=== PATIENT | male | born 1940 | race Caucasian/White ===

== ENCOUNTER → 2017-10-03 13:09 | Outpatient (CLI) | payer OTHER, SELFPAY ==
[2017-10-03 14:05] LABS: Basophils # 0.1 K/mm3 (0-0.2); Basophils % 0.2 % (0.1-2.0); Eosinophils # 0.1 K/mm3 (0.0-0.4); Eosinophils % 0.2 % (0.1-12.0); Hematocrit 41.9 % (42.0-52.0); Hemoglobin 13.6 g/dL (14.1-18.0); Lymphocytes # 31.5 K/mm3 (0.7-4.5); Lymphocytes % 87.7 K/mm3 (10-50); Mean Corpuscular HGB Conc 32.4 g/dL (31.8-35.4); Mean Corpuscular Hemoglobin 30.7 pg (27.0-31.2); Mean Corpuscular Volume 94.9 fl (80-94); Mean Platelet Volume 7.9 fl (7.4-10.4); Monocytes # 0.5 K/mm3 (0.1-1.0); Monocytes % 1.2 % (1.7-9.3); Neutrophils # 3.8 K/mm3 (1.8-7.8); Platelet Count 147 K/mm3 (142-424); Red Blood Count 4.41 M/mm3 (4.60-6.20); Red Cell Distribution Width 12.5 % (11.5-17.5); White Blood Count 35.9 K/mm3 (4.8-10.8)
[2017-10-03 14:52] LABS: Neutrophils % 10.6 % (37.0-80.0)
[2017-10-03 14:53] LABS: MANUAL DIFFERENTIAL MANUAL DIFFERENTIAL (MANUAL DIFF)
[2017-10-03 14:56] LABS: Lymphocytes % 86 % (10-50); Neutrophils % 10 % (42-76); Total Cells Counted 100
[2017-10-03 14:57] LABS: Platelet Estimate Normal; RBC Morphology Normal
[2017-10-03 16:10] LABS: Alanine Aminotransferase 36 U/L (12-78); Albumin Level 3.9 gm/dL (3.4-5.0); Albumin/Globulin Ratio 1.3 (1.1-1.8); Alkaline Phosphatase 115 U/L (46-116); Anion Gap 10.4 mEq/L (5-15); Aspartate Amino Transferase 22 U/L (15-37); Bilirubin,Total 0.3 mg/dL (0.2-1.0); Blood Urea Nitrogen 24 mg/dL (7-18); Calcium 9.7 mg/dL (8.5-10.1); Carbon Dioxide 31 mmol/L (21.0-32.0); Chloride 107 mmol/L (98-107); Creatinine,Serum 0.85 mg/dL (0.70-1.30); Estimated Glomerular Filt Rate 88 ml/min (>60); GFR (African American) 106 ML/MIN (>60); Globulin 2.9 gm/dl (1.3-3.2); Glucose 101 mg/dL (74-106); Potassium 4.4 mmoL/L (3.5-5.1); Sodium 144 mmol/L (136-145); Total Protein,Serum 6.8 gm/dL (6.4-8.2)
[2017-10-05 16:06] LABS: Peripheral Smear Review Scanned Result
== END ==
PROVIDERS: PCP Internal Medicine Adolescent Medicine; Visit Provider Internal Medicine
DX: C91.10 Chronic lymphocytic leukemia of B-cell type not having achieved remission (principal)
CPT/HCPCS: 36415; 80053; 85007; 85025

== ENCOUNTER → 2017-11-28 13:53 | Outpatient (CLI) | payer OTHER, SELFPAY | PROVIDERS: PCP Internal Medicine Adolescent Medicine; Visit Provider Surgery | DX: Z01.810 Encounter for preprocedural cardiovascular examination (principal) | CPT/HCPCS: 93005 ==

== ENCOUNTER → 2018-04-12 10:06 | Outpatient (CLI) | payer OTHER, SELFPAY ==
[2018-04-12 10:33] LABS: Basophils # 0.5 K/mm3 (0-0.2); Basophils % 1.1 % (0.1-2.0); Eosinophils # 0.1 K/mm3 (0.0-0.4); Eosinophils % 0.1 % (0.1-12.0); Hematocrit 46.7 % (42.0-52.0); Hemoglobin 15.2 g/dL (14.1-18.0); Lymphocytes # 36.1 K/mm3 (0.7-4.5); Mean Corpuscular HGB Conc 32.5 g/dL (31.8-35.4); Mean Corpuscular Hemoglobin 31.2 pg (27.0-31.2); Mean Corpuscular Volume 95.9 fl (80-94); Mean Platelet Volume 7.4 fl (7.4-10.4); Monocytes # 0.6 K/mm3 (0.1-1.0); Monocytes % 1.4 % (1.7-9.3); Neutrophils # 4.3 K/mm3 (1.8-7.8); Platelet Count 149 K/mm3 (142-424); Red Blood Count 4.87 M/mm3 (4.60-6.20); Red Cell Distribution Width 13.2 % (11.5-17.5)
[2018-04-12 13:28] LABS: Neutrophils % 10.4 % (37.0-80.0)
[2018-04-12 15:26] LABS: White Blood Count 41.5 K/mm3 (4.8-10.8)
[2018-04-12 15:27] LABS: Lymphocytes % 86 % (10-50); Monocytes % 3 % (2-9); Neutrophils % 11 % (42-76); Platelet Estimate Normal; Total Cells Counted 100
[2018-04-12 15:28] LABS: MANUAL DIFFERENTIAL MANUAL DIFFERENTIAL (MANUAL DIFF)
[2018-04-14 16:18] LABS: Peripheral Smear Review Scanned Result
== END ==
PROVIDERS: PCP Internal Medicine; Visit Provider Internal Medicine
DX: C91.11 Chronic lymphocytic leukemia of B-cell type in remission (principal)
CPT/HCPCS: 36415; 85007; 85025

== ENCOUNTER → 2018-08-30 12:16 | Outpatient (CLI) | payer OTHER, SELFPAY ==
[2018-08-30 12:56] LABS: Basophils # 0.3 K/mm3 (0-0.2); Basophils % 0.8 % (0.1-2.0); Eosinophils % 0.1 % (0.1-12.0); Hematocrit 46.8 % (42.0-52.0); Hemoglobin 14.7 g/dL (14.1-18.0); Lymphocytes # 36.1 K/mm3 (0.7-4.5); Lymphocytes % 87.6 % (10-50); Mean Corpuscular HGB Conc 31.5 g/dL (31.8-35.4); Mean Corpuscular Hemoglobin 31.3 pg (27.0-31.2); Mean Corpuscular Volume 99.2 fl (80-94); Mean Platelet Volume 7.6 fl (7.4-10.4); Monocytes # 0.4 K/mm3 (0.1-1.0); Monocytes % 0.8 % (1.7-9.3); Neutrophils # 4.4 K/mm3 (1.8-7.8); Platelet Count 147 K/mm3 (142-424); Red Blood Count 4.72 M/mm3 (4.60-6.20); Red Cell Distribution Width 12.9 % (11.5-17.5)
[2018-08-30 14:32] LABS: White Blood Count 41.2 K/mm3 (4.8-10.8)
[2018-08-30 14:34] LABS: MANUAL DIFFERENTIAL MANUAL DIFFERENTIAL (MANUAL DIFF)
[2018-08-30 15:28] LABS: Alanine Aminotransferase 30 U/L (12-78); Albumin Level 3.9 gm/dL (3.4-5.0); Albumin/Globulin Ratio 1.3 (1.1-1.8); Alkaline Phosphatase 134 U/L (46-116); Anion Gap 15.7 mEq/L (5-15); Aspartate Amino Transferase 20 U/L (15-37); Bilirubin,Total 0.3 mg/dL (0.2-1.0); Blood Urea Nitrogen 25 mg/dL (7-18); Calcium 9.4 mg/dL (8.5-10.1); Carbon Dioxide 26 mmol/L (21.0-32.0); Chloride 106 mmol/L (98-107); Chol/HDL Ratio 4.9 (1-3.5); Cholesterol 207 mg/dL (140-200); Creatinine,Serum 1.07 mg/dL (0.70-1.30); Estimated Glomerular Filt Rate 67 ml/min (>60); GFR (African American) 82 ML/MIN (>60); Globulin 3.1 gm/dl (1.3-3.2); Glucose 97 mg/dL (74-106); HDL Cholesterol 42 mg/dL (27-67); LDL Cholesterol 141 mg/dL (0-130); Phenytoin (Dilantin) 7.5 ug/mL (10-20); Potassium 4.7 mmoL/L (3.5-5.1); Sodium 143 mmol/L (136-145); Triglycerides 122 mg/dL (30-200); VLDL Cholesterol 24 mg/dL (0-40)
[2018-08-30 16:40] LABS: Lymphocytes % 79 % (10-50); Neutrophils % 17 % (42-76); Platelet Estimate Normal; RBC Morphology Normal; Total Cells Counted 100
[2018-08-30 16:41] LABS: Differential Comment SMUDGE CEL
[2018-08-30 16:42] LABS: Neutrophils % 10.7 % (37.0-80.0)
[2018-09-01 12:18] LABS: Peripheral Smear Review Scanned Result
== END ==
PROVIDERS: PCP Internal Medicine Adolescent Medicine; Visit Provider Internal Medicine Adolescent Medicine
DX: E78.00 Pure hypercholesterolemia, unspecified (principal); R25.1 Tremor, unspecified
CPT/HCPCS: 36415; 80053; 80061; 80185; 85007; 85025

== ENCOUNTER → 2018-10-17 11:12 | Outpatient (CLI) | payer OTHER, SELFPAY ==
[2018-10-17 11:35] LABS: Basophils # 0.3 K/mm3 (0-0.2); Basophils % 0.7 % (0.1-2.0); Eosinophils % 0.1 % (0.1-12.0); Hematocrit 46.8 % (42.0-52.0); Hemoglobin 15.2 g/dL (14.1-18.0); Lymphocytes # 35.5 K/mm3 (0.7-4.5); Lymphocytes % 88.3 % (10-50); Mean Corpuscular HGB Conc 32.6 g/dL (31.8-35.4); Mean Corpuscular Hemoglobin 31.9 pg (27.0-31.2); Mean Corpuscular Volume 97.9 fl (80-94); Mean Platelet Volume 7.6 fl (7.4-10.4); Monocytes # 0.3 K/mm3 (0.1-1.0); Monocytes % 0.8 % (1.7-9.3); Neutrophils # 4.1 K/mm3 (1.8-7.8); Platelet Count 129 K/mm3 (142-424); Red Blood Count 4.78 M/mm3 (4.60-6.20)
[2018-10-17 11:43] LABS: Alanine Aminotransferase 26 U/L (12-78); Albumin Level 3.7 gm/dL (3.4-5.0); Albumin/Globulin Ratio 1.1 (1.1-1.8); Alkaline Phosphatase 140 U/L (46-116); Anion Gap 13.1 mEq/L (5-15); Aspartate Amino Transferase 15 U/L (15-37); Bilirubin,Total 0.3 mg/dL (0.2-1.0); Blood Urea Nitrogen 27 mg/dL (7-18); Carbon Dioxide 28 mmol/L (21.0-32.0); Chloride 106 mmol/L (98-107); Creatinine,Serum 1.12 mg/dL (0.70-1.30); Estimated Glomerular Filt Rate 64 ml/min (>60); GFR (African American) 77 ML/MIN (>60); Globulin 3.4 gm/dl (1.3-3.2); Glucose 111 mg/dL (74-106); Potassium 5.1 mmoL/L (3.5-5.1); Sodium 142 mmol/L (136-145); Total Protein,Serum 7.1 gm/dL (6.4-8.2)
[2018-10-17 12:02] LABS: Neutrophils % 10.2 % (37.0-80.0); White Blood Count 40.3 K/mm3 (4.8-10.8)
[2018-10-17 12:03] LABS: MANUAL DIFFERENTIAL MANUAL DIFFERENTIAL (MANUAL DIFF)
[2018-10-17 12:16] LABS: Lymphocytes % 84 % (10-50); Neutrophils % 13 % (42-76); Platelet Estimate Slight Decrease; Total Cells Counted 100
[2018-10-17 12:17] LABS: RBC Morphology Normal
--- NOTE | 2018-10-17 13:31 | XR_ITS ---
XR tibia fibula RT 2V CLINICAL INDICATION: ITS.REASON: RT LOWER LEG PAIN,H/O PROSTATE CA,LYMPHOCYTIC LEUKEMIA ORDERING PHYSICIAN: Nicolas Osborn MD PATIENT AGE: 78 years Comparison: None FINDINGS: No bony or joint abnormalities. No lytic or blastic change. IMPRESSION: Negative right tib-fib
[2018-10-17 14:05] LABS: Thyroid Stimulating Hormone < 0.01 uIU/ml (0.358-3.740)
[2018-10-17 15:02] LABS: Free T4 (Free Thyroxine) 1.61 ng/dl (0.76-1.46)
[2018-10-18 12:37] LABS: Vitamin B12 634 pg/mL (232-1245)
== END ==
PROVIDERS: Nurse Practitioner Family; PCP Internal Medicine Adolescent Medicine; Visit Provider Internal Medicine
DX: C91.90 Lymphoid leukemia, unspecified not having achieved remission (principal); M79.661 Pain in right lower leg; E05.90 Thyrotoxicosis, unspecified without thyrotoxic crisis or storm; R41.0 Disorientation, unspecified; Z85.46 Personal history of malignant neoplasm of prostate
CPT/HCPCS: 36415; 73590; 80053; 82607; 84439; 84443; 85007; 85025

== ENCOUNTER → 2018-11-08 10:08 | Outpatient (CLI) | payer OTHER, SELFPAY ==
--- NOTE | 2018-11-08 10:15 | CA_ITS ---
PROCEDURE: 2-D M-mode and color Doppler study INDICATIONS FOR THE TEST: Chest pain+ COPD Heart Murmur Tobacco Smoking Palpitations+ Fatigue Syncope Edema Hypertension Diabetes Mellitus Rheumatic Fever SOB+DSOUZA+Obesity Hyperlipidemia Family History HD Additional History CLL PATIENT INFORMATION HEIGHT: 64 WEIGHT: 148 GENDER: Male B/P: 148/56 2-D/M-MODE INTERPRETATION: 2-D MEASUREMENTS OBSERVED VALUES IN CMS Right Ventricular Dimension (RVDd) 1.5 Interventricular Septum (Thickness)(IVsd) 0.8 Left Ventricular Internal Dimensions(LVIDd) 2.8 Left Ventricular Posterior Wall (Thickness)(LVPWd) 0.9 Aortic Root 2.6 Aortic Cusp Separation 2.0 Left Atrial Dimensions (LAD) 4.0 2D 1. Left atrium is mildly enlarged, left ventricle is normal size, there is no concentric left ventricular hypertrophy, visually estimated ejection fraction of 55% with no regional wall motion abnormality. 2. The right atrium and right ventricle are normal size and contractility. 3. The aortic valve is thickened and calcified leaflet continue to display good mobility. 4. The mitral and tricuspid valve are grossly normal. 5. The pulmonic valve is poorly visualized. 6. No significant pericardial effusion noted. DOPPLER INTERROGATION: Doppler interrogation of the aortic, mitral and tricuspid valvular presence of mild mitral and tricuspid regurgitation, tricuspid regurgitation jet velocity is inadequate for calculation of the right ventricular systolic pressure, grade 1 diastolic dysfunction seen with tissue Doppler evidence of raised left atrial pressure. CONCLUSION: 1. Mildly enlarged left atrium, normal left ventricular size, there is no concentric left ventricular hypertrophy, visually estimated ejection fraction 55% with no regional wall motion abnormality, grade 1 diastolic dysfunction seen with tissue Doppler evidence of raised left atrial pressure. 2. Thickened and calcified aortic valve without aortic stenosis aortic insufficiency. 3. Mild mitral and tricuspid regurgitation 4. No significant pericardial effusion noted.
== END ==
PROVIDERS: PCP Internal Medicine Adolescent Medicine; Visit Provider Nurse Practitioner Family
DX: R06.09 Other forms of dyspnea (principal)
CPT/HCPCS: 93306

== ENCOUNTER → 2019-04-03 12:20 | Outpatient (CLI) | payer OTHER, SELFPAY ==
[2019-04-03 12:56] LABS: Basophils # 0.4 K/mm3 (0-0.2); Basophils % 0.9 % (0.1-2.0); Eosinophils % 0.1 % (0.1-12.0); Hematocrit 45.7 % (42.0-52.0); Hemoglobin 14.6 g/dL (14.1-18.0); Mean Corpuscular HGB Conc 32.1 g/dL (31.8-35.4); Mean Corpuscular Hemoglobin 31.5 pg (27.0-31.2); Mean Corpuscular Volume 98.4 fl (80-94); Mean Platelet Volume 7.1 fl (7.4-10.4); Monocytes # 0.4 K/mm3 (0.1-1.0); Monocytes % 0.9 % (1.7-9.3); Neutrophils # 3.7 K/mm3 (1.8-7.8); Platelet Count 136 K/mm3 (142-424); Red Blood Count 4.64 M/mm3 (4.60-6.20); Red Cell Distribution Width 13.1 % (11.5-17.5)
[2019-04-03 13:11] LABS: Alanine Aminotransferase 22 U/L (12-78); Albumin Level 3.6 gm/dL (3.4-5.0); Albumin/Globulin Ratio 1.2 (1.1-1.8); Alkaline Phosphatase 129 U/L (46-116); Anion Gap 11.3 mEq/L (5-15); Aspartate Amino Transferase 14 U/L (15-37); Bilirubin,Total 0.2 mg/dL (0.2-1.0); Blood Urea Nitrogen 28 mg/dL (7-18); Calcium 9.1 mg/dL (8.5-10.1); Carbon Dioxide 31 mmol/L (21.0-32.0); Chloride 106 mmol/L (98-107); Creatinine,Serum 1.08 mg/dL (0.70-1.30); Estimated Glomerular Filt Rate 66 ml/min (>60); GFR (African American) 80 ML/MIN (>60); Glucose 105 mg/dL (74-106); Potassium 4.3 mmoL/L (3.5-5.1); Sodium 144 mmol/L (136-145); Total Protein,Serum 6.6 gm/dL (6.4-8.2)
[2019-04-03 13:14] LABS: Neutrophils % 9.1 % (37.0-80.0)
[2019-04-03 13:18] LABS: White Blood Count 40.7 K/mm3 (4.8-10.8)
[2019-04-03 13:33] LABS: MANUAL DIFFERENTIAL MANUAL DIFFERENTIAL (MANUAL DIFF)
[2019-04-03 14:00] LABS: Lymphocytes % 57 % (10-50); Neutrophils % 11 % (42-76); Platelet Estimate Normal; RBC Morphology Normal; Total Cells Counted 100
== END ==
PROVIDERS: Visit Provider Internal Medicine Medical Oncology
DX: C91.10 Chronic lymphocytic leukemia of B-cell type not having achieved remission (principal)
CPT/HCPCS: 36415; 80053; 85007; 85025

== ENCOUNTER → 2019-04-15 11:06 | Outpatient (CLI) | payer OTHER, SELFPAY ==
[2019-04-15 11:27] LABS: Basophils # 0.4 K/mm3 (0-0.2); Eosinophils # 0.1 K/mm3 (0.0-0.4); Eosinophils % 0.1 % (0.1-12.0); Hematocrit 45.9 % (42.0-52.0); Hemoglobin 14.8 g/dL (14.1-18.0); Lymphocytes # 36.2 K/mm3 (0.7-4.5); Mean Corpuscular HGB Conc 32.3 g/dL (31.8-35.4); Mean Corpuscular Hemoglobin 31.5 pg (27.0-31.2); Mean Corpuscular Volume 97.5 fl (80-94); Mean Platelet Volume 7.2 fl (7.4-10.4); Monocytes # 0.3 K/mm3 (0.1-1.0); Monocytes % 0.8 % (1.7-9.3); Neutrophils # 3.7 K/mm3 (1.8-7.8); Platelet Count 144 K/mm3 (142-424); Red Blood Count 4.71 M/mm3 (4.60-6.20); Red Cell Distribution Width 12.9 % (11.5-17.5)
[2019-04-15 11:39] LABS: MANUAL DIFFERENTIAL MANUAL DIFFERENTIAL (MANUAL DIFF)
[2019-04-15 13:24] LABS: Alanine Aminotransferase 22 U/L (12-78); Albumin Level 3.7 gm/dL (3.4-5.0); Albumin/Globulin Ratio 1.2 (1.1-1.8); Alkaline Phosphatase 129 U/L (46-116); Anion Gap 11.1 mEq/L (5-15); Aspartate Amino Transferase 15 U/L (15-37); Bilirubin,Total 0.2 mg/dL (0.2-1.0); Blood Urea Nitrogen 24 mg/dL (7-18); Calcium 9.8 mg/dL (8.5-10.1); Carbon Dioxide 30 mmol/L (21.0-32.0); Chloride 105 mmol/L (98-107); Cholesterol 216 mg/dL (140-200); Creatinine,Serum 1.04 mg/dL (0.70-1.30); Estimated Glomerular Filt Rate 69 ml/min (>60); Free Thyroxine Index 2.4 ug/dL (5.93-13.13); GFR (African American) 84 ML/MIN (>60); Glucose 93 mg/dL (74-106); HDL Cholesterol 43 mg/dL (27-67); LDL Cholesterol 154 mg/dL (0-130); Potassium 4.1 mmoL/L (3.5-5.1); Sodium 142 mmol/L (136-145); T4 (Thyroxine) 6.8 ug/dl (4.7-13.3); Total Protein,Serum 6.7 gm/dL (6.4-8.2); Triglycerides 93 mg/dL (30-200); Triiodothryronine (T3) Uptake 35 % (31-39); VLDL Cholesterol 19 mg/dL (0-40)
[2019-04-15 13:54] LABS: Lymphocytes % 93 % (10-50); Monocytes % 1 % (2-9); Neutrophils % 6 % (42-76); Platelet Estimate Normal; Total Cells Counted 100
[2019-04-15 13:56] LABS: RBC Morphology Normal
[2019-04-15 14:33] LABS: Thyroid Stimulating Hormone < 0.01 uIU/ml (0.358-3.740)
[2019-04-17 09:39] LABS: White Blood Count 40.6 K/mm3 (4.8-10.8)
== END ==
PROVIDERS: Visit Provider Internal Medicine Adolescent Medicine
DX: E78.00 Pure hypercholesterolemia, unspecified (principal); E05.90 Thyrotoxicosis, unspecified without thyrotoxic crisis or storm
CPT/HCPCS: 36415; 80053; 80061; 84436; 84443; 84479; 85007; 85025

== ENCOUNTER → 2019-10-02 12:43 | Outpatient (CLI) | payer OTHER, SELFPAY ==
[2019-10-02 12:56] LABS: Basophils # 0.2 K/mm3 (0-0.2); Basophils % 0.7 % (0.1-2.0); Eosinophils % 0.1 % (0.1-12.0); Hematocrit 41.7 % (42.0-52.0); Hemoglobin 14.3 g/dL (14.1-18.0); Lymphocytes # 30.5 K/mm3 (0.7-4.5); Lymphocytes % 84.1 % (10-50); Mean Corpuscular HGB Conc 34.3 g/dL (31.8-35.4); Mean Corpuscular Volume 96.1 fl (80-94); Mean Platelet Volume 8.5 fl (7.4-10.4); Monocytes # 0.4 K/mm3 (0.1-1.0); Monocytes % 1.2 % (1.7-9.3); Neutrophils # 5.1 K/mm3 (1.8-7.8); Platelet Count 165 K/mm3 (142-424); Red Blood Count 4.34 M/mm3 (4.60-6.20); Red Cell Distribution Width 12.2 % (11.5-17.5); White Blood Count 36.3 K/mm3 (4.8-10.8)
[2019-10-02 12:57] LABS: Neutrophils % 14.1 % (37.0-80.0)
[2019-10-02 12:58] LABS: MANUAL DIFFERENTIAL MANUAL DIFFERENTIAL (MANUAL DIFF)
[2019-10-02 13:05] LABS: Lymphocytes % 85 % (10-50); Monocytes % 1 % (2-9); Neutrophils % 14 % (42-76); Platelet Estimate Normal; RBC Morphology Normal; Total Cells Counted 100
== END ==
PROVIDERS: Visit Provider Internal Medicine Hematology & Oncology
DX: C91.10 Chronic lymphocytic leukemia of B-cell type not having achieved remission (principal)
CPT/HCPCS: 36415; 85007; 85025

== ENCOUNTER → 2019-11-05 10:54 | Outpatient (CLI) | payer OTHER, SELFPAY ==
[2019-11-05 11:30] LABS: Basophils # 0.2 K/mm3 (0-0.2); Basophils % 0.6 % (0.1-2.0); Eosinophils % 0.1 % (0.1-12.0); Hematocrit 44.1 % (42.0-52.0); Hemoglobin 14.7 g/dL (14.1-18.0); Lymphocytes # 27.4 K/mm3 (0.7-4.5); Lymphocytes % 86.1 % (10-50); Mean Corpuscular HGB Conc 33.4 g/dL (31.8-35.4); Mean Corpuscular Hemoglobin 32.6 pg (27.0-31.2); Mean Corpuscular Volume 97.5 fl (80-94); Mean Platelet Volume 8.4 fl (7.4-10.4); Monocytes # 0.3 K/mm3 (0.1-1.0); Monocytes % 0.8 % (1.7-9.3); Platelet Count 117 K/mm3 (142-424); Red Blood Count 4.53 M/mm3 (4.60-6.20); White Blood Count 31.9 K/mm3 (4.8-10.8)
[2019-11-05 12:29] LABS: Neutrophils % 12.4 % (37.0-80.0)
[2019-11-05 12:30] LABS: MANUAL DIFFERENTIAL MANUAL DIFFERENTIAL (MANUAL DIFF)
[2019-11-05 12:35] LABS: Lymphocytes % 86 % (10-50); Neutrophils % 12 % (42-76); Total Cells Counted 100
[2019-11-05 12:36] LABS: Platelet Estimate Slight Decrease
[2019-11-05 12:41] LABS: RBC Morphology Normal
[2019-11-05 13:26] LABS: Alanine Aminotransferase 13 U/L (12-78); Albumin Level 4.3 g/dl (3.5-5.0); Albumin/Globulin Ratio 1.7 (1.1-1.8); Alkaline Phosphatase 117 U/L (38-126); Anion Gap 8.7 mEq/L (5-15); Aspartate Amino Transferase 23 U/L (17-59); Bilirubin,Total 0.3 mg/dl (0.2-1.3); Blood Urea Nitrogen 25 mg/dl (9-20); Calcium 10.3 mg/dl (8.4-10.2); Carbon Dioxide 31 mmol/L (22.0-30.0); Chloride 105 mmol/L (98-107); Estimated Glomerular Filt Rate 65 ml/min (>60); GFR (African American) 79 ML/MIN (>60); Globulin 2.5 g/dL (1.3-3.2); Glucose 104 mg/dl (74-100); Potassium 4.7 mmoL/L (3.5-5.1); Sodium 140 mmol/L (136-145); Total Protein,Serum 6.8 g/dl (6.3-8.2)
[2019-11-05 13:45] LABS: Free Thyroxine Index 2.7 ug/dL (5.93-13.13); T4 (Thyroxine) 8.3 ug/dl (5.53-11.0); Triiodothryronine (T3) Uptake 33 % (23.5-40.5)
[2019-11-05 13:57] LABS: Prostate Specific Ag, Diagnost < 0.064 ng/ml (0.0-4.0)
[2019-11-05 13:59] LABS: Thyroid Stimulating Hormone < 0.02 uIU/mL (0.465-4.68)
[2019-11-07 11:24] LABS: Vitamin B12 529 pg/mL (232-1245); Vitamin D 25 Hydroxy 57.3 ng/mL (30.0-100.0)
== END ==
PROVIDERS: Visit Provider Internal Medicine Adolescent Medicine
DX: C91.90 Lymphoid leukemia, unspecified not having achieved remission (principal); E05.90 Thyrotoxicosis, unspecified without thyrotoxic crisis or storm; R63.4 Abnormal weight loss; Z85.46 Personal history of malignant neoplasm of prostate
CPT/HCPCS: 36415; 80053; 82607; 82652; 84153; 84436; 84443; 84479; 85007; 85025

== ENCOUNTER → 2020-09-06 16:54 | Outpatient (CLI) | payer OTHER, SELFPAY ==
[2020-09-06 18:29] LABS: Basophils # 0.2 K/mm3 (0-0.2); Basophils % 0.7 % (0.1-2.0); Eosinophils % 0.1 % (0.1-12.0); Hemoglobin 15.4 g/dL (14.1-18.0); Lymphocytes # 28.4 K/mm3 (0.7-4.5); Lymphocytes % 88.8 % (10-50); Mean Corpuscular HGB Conc 32.8 g/dL (31.8-35.4); Mean Corpuscular Hemoglobin 31.6 pg (27.0-31.2); Mean Corpuscular Volume 96.1 fl (80-94); Mean Platelet Volume 8.1 fl (7.4-10.4); Monocytes # 0.3 K/mm3 (0.1-1.0); Monocytes % 1.1 % (1.7-9.3); Platelet Count 153 K/mm3 (142-424); Red Blood Count 4.89 M/mm3 (4.60-6.20); Red Cell Distribution Width 13.6 % (11.5-17.5)
[2020-09-06 18:43] LABS: MANUAL DIFFERENTIAL MANUAL DIFFERENTIAL (MANUAL DIFF); Neutrophils % 9.2 % (37.0-80.0)
[2020-09-06 19:00] LABS: Alanine Aminotransferase 18 U/L (12-78); Albumin Level 4.7 g/dl (3.5-5.0); Albumin/Globulin Ratio 1.6 (1.1-1.8); Alkaline Phosphatase 146 U/L (38-126); Anion Gap 15.5 mEq/L (5-15); Aspartate Amino Transferase 33 U/L (17-59); Bilirubin,Total 0.4 mg/dl (0.2-1.3); Blood Urea Nitrogen 28 mg/dl (9-20); Calcium 10.1 mg/dl (8.4-10.2); Carbon Dioxide 29 mmol/L (22.0-30.0); Chloride 102 mmol/L (98-107); Estimated Glomerular Filt Rate 72 ml/min (>60); GFR (African American) 88 ML/MIN (>60); Glucose 107 mg/dl (74-100); Magnesium 1.9 mg/dl (1.6-2.3); Phenytoin (Dilantin) 6.2 ug/ml (10-20); Potassium 4.5 mmoL/L (3.5-5.1); Sodium 142 mmol/L (136-145); Total Protein,Serum 7.7 g/dl (6.3-8.2)
[2020-09-06 19:13] LABS: Free Thyroxine Index 4.1 ug/dL (5.93-13.13); T4 (Thyroxine) 10.7 ug/dl (5.53-11.0); Triiodothryronine (T3) Uptake 38 % (23.5-40.5)
[2020-09-06 19:27] LABS: Thyroid Stimulating Hormone < 0.02 uIU/mL (0.465-4.68)
[2020-09-06 19:46] LABS: Vitamin B12 692 pg/mL (239-931)
[2020-09-06 20:31] LABS: Lymphocytes % 85 % (10-50); Monocytes % 2 % (2-9); Neutrophils % 13 % (42-76); Platelet Estimate Normal; RBC Morphology Normal; Total Cells Counted 100
== END ==
PROVIDERS: Visit Provider Internal Medicine Adolescent Medicine
DX: R42 Dizziness and giddiness (principal); R25.1 Tremor, unspecified
CPT/HCPCS: 36415; 80053; 80185; 82607; 83735; 84436; 84443; 84479; 85007; 85025

== ENCOUNTER → 2020-10-21 13:30 | Outpatient (CLI) | payer OTHER, SELFPAY ==
[2020-10-21 13:50] LABS: Basophils # 0.2 K/mm3 (0-0.2); Basophils % 0.6 % (0.1-2.0); Eosinophils # 0.1 K/mm3 (0.0-0.4); Eosinophils % 0.2 % (0.1-12.0); Hemoglobin 14.9 g/dL (14.1-18.0); Lymphocytes # 23.4 K/mm3 (0.7-4.5); Monocytes # 0.3 K/mm3 (0.1-1.0); Monocytes % 1.1 % (1.7-9.3); White Blood Count 27.1 K/mm3 (4.8-10.8)
[2020-10-21 14:21] LABS: Hematocrit 45.9 % (42.0-52.0); Lymphocytes % 86.2 % (10-50); Mean Corpuscular HGB Conc 32.4 g/dL (31.8-35.4); Mean Corpuscular Hemoglobin 30.7 pg (27.0-31.2); Mean Platelet Volume 8.3 fl (7.4-10.4); Neutrophils # 3.3 K/mm3 (1.8-7.8); Platelet Count 124 K/mm3 (142-424); Red Blood Count 4.83 M/mm3 (4.60-6.20); Red Cell Distribution Width 13.1 % (11.5-17.5)
[2020-10-21 14:26] LABS: MANUAL DIFFERENTIAL MANUAL DIFFERENTIAL (MANUAL DIFF)
[2020-10-21 15:01] LABS: Alanine Aminotransferase 21 U/L (12-78); Albumin Level 4.7 g/dl (3.5-5.0); Albumin/Globulin Ratio 1.7 (1.1-1.8); Alkaline Phosphatase 130 U/L (38-126); Anion Gap 12.6 mEq/L (5-15); Aspartate Amino Transferase 26 U/L (17-59); Bilirubin,Total 0.5 mg/dl (0.2-1.3); Blood Urea Nitrogen 25 mg/dl (9-20); Calcium 10.8 mg/dl (8.4-10.2); Carbon Dioxide 30 mmol/L (22.0-30.0); Chloride 102 mmol/L (98-107); Estimated Glomerular Filt Rate 72 ml/min (>60); GFR (African American) 87 ML/MIN (>60); Globulin 2.8 g/dL (1.3-3.2); Glucose 106 mg/dl (74-100); Potassium 4.6 mmoL/L (3.5-5.1); Sodium 140 mmol/L (136-145); Total Protein,Serum 7.5 g/dl (6.3-8.2)
[2020-10-21 15:07] LABS: Lymphocytes % 84 % (10-50); Monocytes % 4 % (2-9); Neutrophils % 12 % (42-76); Platelet Estimate Slight Decrease; RBC Morphology Normal; Total Cells Counted 100
== END ==
PROVIDERS: Visit Provider Internal Medicine Medical Oncology
DX: C91.11 Chronic lymphocytic leukemia of B-cell type in remission (principal)
CPT/HCPCS: 36415; 80053; 85007; 85025

== ENCOUNTER 2021-05-30 20:47 | Inpatient (IN) | payer OTHER, SELFPAY ==
[2021-05-30 20:41] VITALS: BP 131/58; PULSE 118; RESP 16; TEMP 37.3; O2SAT 99; BMI 26.5
--- NOTE | 2021-05-30 20:54 | HMH.EDFALL ---
ED Disposition Clinical Impression: CLL (chronic lymphocytic leukemia), Elevated troponin Fall Qualifiers: Encounter type: initial encounter Qualified Code(s): W19.XXXA - Unspecified fall, initial encounter UTI (urinary tract infection) Qualifiers: Urinary tract infection type: site unspecified Hematuria presence: without hematuria Qualified Code(s): N39.0 - Urinary tract infection, site not specified Ribs, multiple fractures Qualifiers: Encounter type: initial encounter Fracture type: closed Laterality: right Qualified Code(s): S22.41XA - Multiple fractures of ribs, right side, initial encounter for closed fracture Disposition: Admitted As Inpatient Condition on Discharge: [facility] - Critical Care Critical Care Time: No Attestation: On , the high probability of a clinically significant, sudden or life threatening deterioration of the following system(s) required my full and direct attention, intervention and personal management. The time I documented below is in addition to time spent performing reported procedures but includes the following listed in this critical care notation. Medical Decision Making - Medical Records Medical records reviewed: Yes: I reviewed the patient's medical records. - Farzad Inquiry Pt receiving controlled substance: No Vital Signs: 05/30/21 20:41 05/30/21 21:01 05/30/21 21:28 Temperature 99.1 F Temperature Source Oral Pulse Rate 112 H 109 H Pulse Rate [Right] 118 H Respiratory Rate 16 Blood Pressure 109/70 L 110/74 Blood Pressure [Right Arm] 131/58 L Blood Pressure Mean [Right Arm] 82 Blood Pressure Source Blood Pressure Source [Right Arm] Automatic Cuff Blood Pressure Position Blood Pressure Position [Right Arm] Sitting 02 Sat by Pulse Oximetry 99 96 93 L Oxygen Delivery Method Room Air Room Air Room Air 05/30/21 23:04 05/30/21 23:30 05/31/21 00:00 Temperature Temperature Source Pulse Rate 114 H 92 H 94 H Pulse Rate [Right] Respiratory Rate Blood Pressure 112/52 L 94/52 L 105/50 L Blood Pressure [Right Arm] Blood Pressure Mean [Right Arm] Blood Pressure Source Blood Pressure Source [Right Arm] Blood Pressure Position Blood Pressure Position [Right Arm] 02 Sat by Pulse Oximetry 97 97 96 Oxygen Delivery Method Room Air Room Air 05/31/21 01:34 Temperature Temperature Source Pulse Rate 95 H Pulse Rate [Right] Respiratory Rate 16 Blood Pressure 108/57 L Blood Pressure [Right Arm] Blood Pressure Mean [Right Arm] Blood Pressure Source Automatic Cuff Blood Pressure Source [Right Arm] Blood Pressure Position Sitting Blood Pressure Position [Right Arm] 02 Sat by Pulse Oximetry 96 Oxygen Delivery Method Room Air - Lab Data Lab results reviewed: Yes: I reviewed the patient's lab results. Lab Results 05/30/21 20:20: WBC 27.0 H*, RBC 4.32 L, Hgb 13.7 L, Hct 42.3, MCV 97.9 H, MCH 31.8 H, MCHC 32.5, RDW 13.9, Plt Count 139 L, MPV 9.0, Neut % (Auto) 30.0 L, Lymph % (Auto) 67.7 H, Gordon % (Auto) 1.8, Eos % (Auto) 0.0 L, Baso % (Auto) 0.5, Neut # (Auto) 8.1 H, Lymph # (Auto) 18.3 H, Gordon # (Auto) 0.5, Eos # (Auto) 0.0, Baso # (Auto) 0.1, Total Counted 100, Neutrophils % (Manual) 32 L, Lymphocytes % (Manual) 68 H, Platelet Estimate Normal, RBC Morphology Normal 05/30/21 20:20: Sodium 140, Potassium 4.1, Chloride 101, Carbon Dioxide 29, Anion Gap 14.1, BUN 22 H, Creatinine 1.10, Estimated Creat Clear 53, Estimated GFR 65, Est GFR ( Amer) 78, Glucose 126 H, Calcium 10.5 H, Total Bilirubin 0.8, AST 32, ALT 22, Alkaline Phosphatase 126, Troponin I 0.08 H, Total Protein 7.8, Albumin 4.5, Globulin 3.3 H, Albumin/Globulin Ratio 1.4, Phenytoin < 3.0 L 05/30/21 22:55: Urine Color Yellow, Urine Appearance Sl cloudy, Urine pH 6.0, Ur Specific [place] 1.010, Urine Protein Trace, Urine Glucose (UA) Negative, Urine Ketones Negative, Urine Blood 2+, Urine Nitrate Negative, Urine Bilirubin Negative, Urine Urobilinogen 0.2, Ur Leuk
--- NOTE | 2021-05-30 20:57 | CT_ITS ---
PROCEDURE INFORMATION: Exam: CT Abdomen And Pelvis With Contrast Exam date and time: 05/30/2021 8:57 PM Age: 80 years old Clinical indication: Injury or trauma; Fall; Blunt; Upper; Additional info: Fall, C/O right sided rib pain TECHNIQUE: Imaging protocol: Computed tomography of the abdomen and pelvis with contrast. Radiation optimization: All CT scans at this facility use at least one of these dose optimization techniques: automated exposure control; mA and/or kV adjustment per patient size (includes targeted exams where dose is matched to clinical indication); or iterative reconstruction. Contrast material: ISOVUE; Contrast volume: 75 ml; Contrast route: IV; COMPARISON: CR XR PELVIS 1-2V 05/30/2021 9:08 PM FINDINGS: Lungs: No mass/infiltrate at either lung base. Chronic parenchymal changes are noted bilaterally. There is calcification of the left coronary artery. No pleural effusion. Liver: The liver is normal in size and attenuation. No intrahepatic biliary dilitation. Gallbladder and bile ducts: The gallbladder is surgically absent. No evidence of extrahepatic biliary dilatation. Pancreas: Normal. No ductal dilation. Spleen: Click splenectomy Adrenal glands: Normal. No mass. Kidneys and ureters: Right renal atrophy. There are benign cystic changes present within both kidneys. No evidence of hydronephrosis. No follow-up imaging recommended. Stomach and bowel: Colonic fecal stasis. No obstruction. No mucosal thickening. Small bowel mesentery is normal. Appendix: Unremarkable. Intraperitoneal space: Unremarkable. No free air. No significant fluid collection. Vasculature: There are atheromatous calcifications of the aorta. No abdominal aortic aneurysm. Lymph nodes: Unremarkable. No enlarged lymph nodes. Urinary bladder: Unremarkable as visualized. Reproductive: Prostatectomy and pelvic lymph node dissection noted. Bones/joints: There are acute fractures of the right 10th and 11th ribs. There is mild overlying soft tissue swelling. There is deformity of the left transverse process of L3 which may be secondary to old healed fracture. There is deformity associated with old fractures of left superior and inferior pubic rami. Degenerative changes of the lumbar spine and sacroiliac joints are evident. No acute fracture. Soft tissues: Unremarkable. IMPRESSION: There are acute nondisplaced fractures of the right 10th and 11th ribs. There is mild overlying soft tissue swelling. COMMENTS: Consistent with the [employer]'s Incidental Findings Committee white paper (J Am Aly Radiol 2018): Any incidental renal lesion less than 1 cm or classified as too small to characterize, or any incidental cystic renal lesion characterized as simple-appearing, is likely benign. No follow-up imaging is recommended for these lesions per consensus recommendations based on imaging criteria.
--- NOTE | 2021-05-30 20:57 | XR_ITS ---
PROCEDURE INFORMATION: Exam: XR Pelvis Exam date and time: 05/30/2021 8:57 PM Age: 80 years old Clinical indication: Injury or trauma; Fall; Blunt trauma (contusions or hematomas); Bilateral; Hip TECHNIQUE: Imaging protocol: XR pelvis. Views: 1 or 2 view. COMPARISON: No relevant prior studies available. FINDINGS: Bones/joints: There are degenerative changes noted within the lumbar spine. Levoconvex lumbar scoliosis. Mild degenerative changes of the sacroiliac joints is evident. No acute fracture. Soft tissues: There are multiple clips identified within the sacral region and within the deep pelvis. IMPRESSION: No acute findings.
--- NOTE | 2021-05-30 20:57 | XR_ITS ---
PROCEDURE INFORMATION: Exam: XR Chest Exam date and time: 05/30/2021 8:57 PM Age: 80 years old Clinical indication: Injury or trauma; Fall; Blunt trauma (contusions or hematomas) TECHNIQUE: Imaging protocol: XR of the chest. Views: 1 view. COMPARISON: No relevant prior studies available. FINDINGS: Limited inspiration and penetration of the chest. Lungs: Mild bibasilar atelectatic changes. There is a 4 mm nodule which is nearly equivalent to adjacent rib density noted within the peripheral aspect of the left mid lung field. Primary diagnostic consideration would be a calcified granuloma. There is a 2nd nodular density which is within the left lateral perihilar region which measures 12 mm in diameter. This could also represent another calcified granuloma or a calcified lymph node. This could be further evaluated with unenhanced computed tomography of clinically indicated. No evidence of alveolar consolidation. There is no evidence of pulmonary vascular congestion. Pleural spaces: Unremarkable. No pleural effusion. No pneumothorax. Heart/Mediastinum: Unremarkable. No cardiomegaly. Bones/joints: There are degenerative changes noted within the thoracic spine. IMPRESSION: No acute findings.
--- NOTE | 2021-05-30 20:57 | CT_ITS ---
PROCEDURE INFORMATION: Exam: CT Chest With Contrast; Diagnostic Exam date and time: 05/30/2021 8:57 PM Age: 80 years old Clinical indication: Injury or trauma; Fall; Blunt trauma (contusions or hematomas); Additional info: Fall, C/O right rib pain TECHNIQUE: Imaging protocol: Diagnostic computed tomography of the chest with contrast. 3D rendering (Not supervised by radiologist): MIP and/or 3D reconstructed images were created by the technologist. Radiation optimization: All CT scans at this facility use at least one of these dose optimization techniques: automated exposure control; mA and/or kV adjustment per patient size (includes targeted exams where dose is matched to clinical indication); or iterative reconstruction. Contrast material: ISOVUE; Contrast volume: 75 ml; Contrast route: IV; COMPARISON: CR XR CHEST AP 05/30/2021 9:08 PM FINDINGS: Lungs: Chronic interstitial changes are identified within both lung sharma. No consolidation. No masses. There is a calcified granuloma within the left upper lobe. Pleural spaces: Unremarkable. No pneumothorax. No pleural effusion. Heart: Unremarkable. No cardiomegaly. No pericardial effusion. Coronary arteries: There are calcifications identified within the coronary arteries. Mediastinal space: No evidence of mediastinal or hilar mass. Benign calcification tracheobronchial tree. Aorta: There are atheromatous calcifications of the aorta. No aortic aneurysm. Lymph nodes: Unremarkable. No enlarged lymph nodes. Bones/joints: There are nondisplaced fractures of the right 10th and 11th ribs. Soft tissues: Splenomegaly is again identified. Cholecystectomy has been performed. IMPRESSION: 1. Nondisplaced acute fractures of the right 10th and 11th ribs. 2. There is splenomegaly without evidence of splenic mass. 3. Cholecystectomy has been performed. 4. No evidence of right pleural effusion or pneumothorax. 5. Chronic interstitial changes present within both lung sharma.
[2021-05-30 21:01] VITALS: BP 109/70; PULSE 112; O2SAT 96
--- NOTE | 2021-05-30 21:03 | ECG_ITS ---
APPROVED REPORT Exam: Resting ECG HR:104 bpm ECG Measurements Heart Rate 104 AXES ID 154 P 31 QRSd 82 QRS -8 QT 316 T 39 QTc 415 Conclusion Sinus tachycardia Minimal voltage criteria for LVH, may be normal variant Borderline ECG Electronically signed by : Pratik Sofia MD 06/01/2021 21:25:36
[2021-05-30 21:05] LABS: Basophils # 0.1 K/mm3 (0-0.2); Basophils % 0.5 % (0.1-2.0); Hematocrit 42.3 % (42.0-52.0); Hemoglobin 13.7 g/dL (14.1-18.0); Lymphocytes # 18.3 K/mm3 (0.7-4.5); Lymphocytes % 67.7 % (10-50); Mean Corpuscular HGB Conc 32.5 g/dL (31.8-35.4); Mean Corpuscular Hemoglobin 31.8 pg (27.0-31.2); Mean Corpuscular Volume 97.9 fl (80-94); Monocytes # 0.5 K/mm3 (0.1-1.0); Monocytes % 1.8 % (1.7-9.3); Neutrophils # 8.1 K/mm3 (1.8-7.8); Platelet Count 139 K/mm3 (142-424); Red Blood Count 4.32 M/mm3 (4.60-6.20); Red Cell Distribution Width 13.9 % (11.5-17.5)
[2021-05-30 21:16] LABS: Alanine Aminotransferase 22 U/L (12-78); Albumin Level 4.5 g/dl (3.5-5.0); Albumin/Globulin Ratio 1.4 (1.1-1.8); Alkaline Phosphatase 126 U/L (38-126); Anion Gap 14.1 mEq/L (5-15); Aspartate Amino Transferase 32 U/L (17-59); Bilirubin,Total 0.8 mg/dl (0.2-1.3); Blood Urea Nitrogen 22 mg/dl (9-20); Calcium 10.5 mg/dl (8.4-10.2); Carbon Dioxide 29 mmol/L (22.0-30.0); Chloride 101 mmol/L (98-107); Creatinine Clearance Estimated 53 mL/min (50-200); Estimated Glomerular Filt Rate 65 ml/min (>60); GFR (African American) 78 ML/MIN (>60); Globulin 3.3 g/dL (1.3-3.2); Glucose 126 mg/dl (74-100); Potassium 4.1 mmoL/L (3.5-5.1); Sodium 140 mmol/L (136-145); Total Protein,Serum 7.8 g/dl (6.3-8.2)
[2021-05-30 21:17] LABS: Phenytoin (Dilantin) < 3.0 ug/ml (10-20)
[2021-05-30 21:19] LABS: MANUAL DIFFERENTIAL MANUAL DIFFERENTIAL (MANUAL DIFF)
[2021-05-30 21:25] LABS: Troponin I 0.08 ng/ml (0.00-0.034)
[2021-05-30 21:28] VITALS: BP 110/74; PULSE 109; O2SAT 93
[2021-05-30 21:33] LABS: Lymphocytes % 68 % (10-50); Neutrophils % 32 % (42-76); Platelet Estimate Normal; RBC Morphology Normal; Total Cells Counted 100
--- NOTE | 2021-05-30 21:56 | PC.NURSE ---
pt returned from CT
[2021-05-30 22:59] LABS: Microscopic, Urine URINE MICROSCOPIC (MICROSCOPIC)
[2021-05-30 23:04] VITALS: BP 112/52; PULSE 114; O2SAT 97
[2021-05-30 23:04] LABS: Appearance,Urine SL CLOUDY (Clear); Bilirubin,Urine Negative (Negative); Blood, Urine 2+ (Negative); Color,Urine YELLOW (Yellow); Glucose,Urine (UA) Negative (Negative); Ketones,Urine Negative (Negative); Leukocyte Esterase,Urine 1+ (Negative); Nitrate,Urine Negative (Negative); Protein,Urine TRACE (Negative); Urobilinogen,Urine 0.2 EU/dl (0.2)
--- NOTE | 2021-05-30 23:04 | PC.NURSE ---
Attempted to walk patient, x2 assist. Pt was shuffling his feet and unable to ambulate well. Notified
[2021-05-30 23:15] LABS: Coronavirus 19, PCR Not Detected (NotDetected); Influenza A, PCR Not Detected (NotDetected); Influenza B, PCR Not Detected (NotDetected)
[2021-05-30 23:16] LABS: WBC,Urine 20-50 #/hpf (0-3)
[2021-05-30 23:17] LABS: Bacteria,Urine 4+ /lpf; Squamous Epithelial Cell,Urine Occasional #/hpf (0-5)
[2021-05-30 23:30] VITALS: BP 94/52; PULSE 92; O2SAT 97
[2021-05-31] VITALS (15 sets, daily range): BP systolic 105–143; BP diastolic 45–73; PULSE 94–110; RESP 16–26; TEMP 36.8–38.2; O2SAT 93–98; BMI 22.8
[2021-05-31 00:14] LABS: Troponin I 0.21 ng/ml (0.00-0.034)
[2021-05-31 00:24] LABS: Lactic Acid 0.7 mmol/L (0.7-2.1)
--- NOTE | 2021-05-31 00:40 | PC.NURSE ---
Pt to CT at 0030
--- NOTE | 2021-05-31 01:53 | PC.NURSE ---
Dr. Kathia xie
--- NOTE | 2021-05-31 01:54 | PC.NURSE ---
speaking with Dr. Bea
--- NOTE | 2021-05-31 02:16 | PC.NURSE ---
patient up to floor via stretcher @ this time.
[2021-05-31 02:48] LABS: Troponin I 0.18 ng/ml (0.00-0.034)
[2021-05-31 03:17] LABS: T4 (Thyroxine) 9.4 ug/dl (5.53-11.0); Thyroid Stimulating Hormone < 0.02 uIU/mL (0.465-4.68)
[2021-05-31 06:26] LABS: Basophils # 0.1 K/mm3 (0-0.2); Basophils % 0.5 % (0.1-2.0); Hematocrit 33.8 % (42.0-52.0); Lymphocytes # 12.6 K/mm3 (0.7-4.5); Lymphocytes % 73.9 % (10-50); Mean Corpuscular HGB Conc 33.1 g/dL (31.8-35.4); Mean Corpuscular Hemoglobin 32.5 pg (27.0-31.2); Mean Corpuscular Volume 98.2 fl (80-94); Mean Platelet Volume 9.3 fl (7.4-10.4); Monocytes # 0.3 K/mm3 (0.1-1.0); Monocytes % 1.9 % (1.7-9.3); Neutrophils % 23.7 % (37.0-80.0); Platelet Count 123 K/mm3 (142-424); Red Blood Count 3.44 M/mm3 (4.60-6.20); Red Cell Distribution Width 14.1 % (11.5-17.5)
[2021-05-31 06:30] LABS: Anion Gap 9.9 mEq/L (5-15); Blood Urea Nitrogen 22 mg/dl (9-20); Carbon Dioxide 25 mmol/L (22.0-30.0); Chloride 107 mmol/L (98-107); Creatinine Clearance Estimated 50 mL/min (50-200); Estimated Glomerular Filt Rate 82 ml/min (>60); GFR (African American) 99 ML/MIN (>60); Glucose 102 mg/dl (74-100); Magnesium 1.6 mg/dl (1.6-2.3); Potassium 3.9 mmoL/L (3.5-5.1); Sodium 138 mmol/L (136-145)
--- NOTE | 2021-05-31 06:43 | HMH.HP ---
*Admission Date: 05/31/21 *Chief complaint: falls, weakness *History of present illness: Mr. Montiel is a 80-year-old male with history of hypothyroidism, seizure disorder, who lives by himself. He has been having worsening debility with falls noted prior to coming to the ER but also noted in our outpatient chart over the past year and a half. He lives by himself. Ambulates with a walker. Presented to the ER yesterday due to falling at home and having right lower thoracic pain. Chronically debilitated appearing, thin with sarcopenia. Initial work-up with extensive imaging and labs showed persistent hyperthyroidism, nondisplaced fractures of right rib 10 and 11. Urine concerning for UTI. Additionally noted to have slight bump in his troponin and persistently elevated leukocytosis consistent with his CLL diagnosis. Patient unable to ambulate comfortably with safe disposition from the ER. Decision made to admit for further management including pain control and PT assessment. Concerned that patient may need placement. On assessment this morning, he complains of only some right lower rib pain. Denies any nausea, chest pain, vomiting, shortness of breath. States compliance with his medications (his Dilantin level was below threshold of test). Otherwise pleasant on exam [facility] History I have reviewed the patient's past medical history: Yes Medical History: Reports:: Seizures Denies:: Diabetes Mellitus Type 1, Diabetes Mellitus Type 2, Internal Pacemaker, Lung Disease *Have you ever received a pneumonia vaccine?: No *Have you received a flu vaccine this season?: Yes Other Medical History: Denies: Blood Transfusion Reaction Other Surgeries: Yes: No Previous Surgery, Colonoscopy, Other. No: Pacemaker Amputation: No Fractures: No - *Social History Last grade of school completed: High school graduate Smoking Status: Never smoker Alcohol Intake: never Alcohol Intake Frequency:: other Substance Use Type: denies use *Occupational Status:: retired Housing: apartment Household Members: none *Travel in the last 8 weeks: None Family Hx:: No significant family history Review of Systems - Review of Systems Review of systems:: pertinent systems reviewed and negative unless documented below (14 point review of systems performed, pertinent positives and negatives as per HPI) - *Neurologic Reports frequent falls, Reports weakness, Denies localized weakness, Denies seizure-like activity Meds Home Medications Medication Instructions Recorded Confirmed Type phenytoin sodium extended 100 mg 0 mg PO DIRECTED 90 Days #321 10/17/17 05/31/21 History capsule propylthiouraciL [Propylthiouracil 50 mg PO Q8H 05/30/21 05/31/21 History 50mg Tablet] Allergies Allergy/AdvReac Type Severity Reaction Status Date / Time No Known Allergies Allergy Verified 05/30/21 20:54 Exam Vital signs and Labs for Last 24 Hours: Temp Pulse Resp BP Pulse Ox 99.4 F 99 H 24 114/58 L 94 L 05/31/21 04:00 05/31/21 04:00 05/31/21 04:00 05/31/21 04:00 05/31/21 05:57 Laboratory Results - last 24 hr 05/30/21 20:20: WBC 27.0 H*, RBC 4.32 L, Hgb 13.7 L, Hct 42.3, MCV 97.9 H, MCH 31.8 H, MCHC 32.5, RDW 13.9, Plt Count 139 L, MPV 9.0, Neut % (Auto) 30.0 L, Lymph % (Auto) 67.7 H, [place] % (Auto) 1.8, Eos % (Auto) 0.0 L, Baso % (Auto) 0.5, Neut # (Auto) 8.1 H, Lymph # (Auto) 18.3 H, [place] # (Auto) 0.5, Eos # (Auto) 0.0, Baso # (Auto) 0.1, Total Counted 100, Neutrophils % (Manual) 32 L, Lymphocytes % (Manual) 68 H, Platelet Estimate Normal, RBC Morphology Normal 05/30/21 20:20: Sodium 140, Potassium 4.1, Chloride 101, Carbon Dioxide 29, Anion Gap 14.1, BUN 22 H, Creatinine 1.10, Estimated Creat Clear 53, Estimated GFR 65, Est GFR ( Amer) 78, Glucose 126 H, Calcium 10.5 H, Total Bilirubin 0.8, AST 32, ALT 22, Alkaline Phosphatase 126, Troponin I 0.08 H, Total Protein 7.8, Albumin 4.5, Globulin 3.3 H, Albumin/Globulin Ratio 1.4, Phenytoin < 3.0 L 05/30/21
[2021-05-31 06:56] LABS: Hemoglobin 11.2 g/dL (14.1-18.0)
[2021-05-31 06:57] LABS: MANUAL DIFFERENTIAL MANUAL DIFFERENTIAL (MANUAL DIFF)
--- NOTE | 2021-05-31 07:14 | P.CONPHA_ITS ---
[facility] Pharmacy VTE Monitoring - Patient Demographics Admission date: 05/31/21 Report Date: 05/31/21 Time: 07:14 Allergies/Adverse Reactions: Patient Allergies No Known Allergies Allergy (Verified 05/30/21 20:54) Height: 1.6 m Weight: 58.598 kg Patient Problems: Current Active Problems Fall (Acute) CLL (chronic lymphocytic leukemia) (Acute) UTI (urinary tract infection) (Acute) Ribs, multiple fractures (Acute) Elevated troponin (Acute) - VTE Risk Labs: VTE Related Lab Results Hgb 11.2 g/dL (14.1-18.0) L D 05/31/21 05:40 Hct 33.8 % (42.0-52.0) L 05/31/21 05:40 Plt Count 123 K/mm3 (142-424) L 05/31/21 05:40 BUN 22 mg/dl (9-20) H 05/31/21 05:40 Creatinine 0.90 mg/dl (0.66-1.25) 05/31/21 05:40 Estimated Creat Clear 50 mL/min (50-200) 05/31/21 05:40 Was VTE Risk Assessment Performed: Yes VTE Risk Level: Moderate Risk Clinical Trial Participant: No - Prophylaxis VTE Prophylaxis Ordered?: Yes Types of VTE Prophylaxis: TEDS Knee High
--- NOTE | 2021-05-31 07:26 | HMH.PHAINT ---
MEDICATION RECONCILIATION COMPLETE USING LIST FROM DOCTORS OFFICE
--- NOTE | 2021-05-31 08:00 | CA_ITS ---
APPROVED REPORT EXAM: Comprehensive 2D, Doppler, and color-flow Echocardiogram Fundraising Officer: RENE Parker, RVS Ht: 5 ft 3 in Wt: 150lbs BSA: 1.71 BP: 105/57 mmHg Indications: elevated troponin, Rt-rib fracture, UTI, Falls, CLL 2D Dimensions IVSd 1.26 cm M: 0.6-1.2 LVEF (Visual) 50.20 % PWd 1.18 cm M: 0.6 - 1.2 LA Volume 66.20 mL LVDd 3.91 cm M: 4.2 - 5.9 LA Volume Index 38.71 mL/m2 (M/F) 16-34 LVDs 2.93 cm M: 2.5 - 4.0 RVID Base (AP4) 2.10 cm (M/F) 2.5-4.1 M-Mode Dimensions LA Diam 3.63 cm (1.9-4.0) Ao Diam 3.70 cm (2.0-3.7) EPSs 0.80 cm TAPSE 2.04 (<1.7) LV Diastology E Decel Time 163.00 (160-240 msec) E/A Ratio 0.85 MED E' 6.90 (< 7 cm/sec) MED A' 13.70 cm/s E'/MED E' Ratio 9.88 (>14) LAT E' 8.60 (<10 cm/sec) LAT A' 18.10 cm/s E/LAT E' Ratio 7.93 (>14) Aortic Valve LVOT Max 122.00 (70-110 cm/s) LVOT VTI 21.22 cm AoV Peak Matty. 194.00 (50-130 cm/s) AO Peak GR. 15.10 mmHg AO Mean GR. 6.50 (<5 mmHg) AO VTI 27.41 (18-25 cm) Mitral Valve MV A Velocity 81.00 (40-130 cm/s) E/A Ratio 0.85 MV Decel. Time 163.00 (160-240 ms) Tricuspid Valve TR P. Velocity 282.00 cm/s RAP Estimate 10.00 mmHg RVSP 41.80 mmHg Left Ventricle Left atrium is mildly enlarged, definitely is normal size, mild concentric left ventricular hypertrophy, visually estimated ejection fraction 45% with no regional wall motion abnormality, grade 1 diastolic dysfunction seen without tissue Doppler evidence of raise left atrial pressure. Right Ventricle Right atrium and right ventricular normal size and contractility. Aortic Valve Aortic valve is minimally thickened and fibrosed, there is no aortic stenosis or aortic insufficiency. Mitral Valve Mitral valve is grossly normal, there is mild mitral regurgitation. Tricuspid Valve Tricuspid valve grossly normal, there is mild tricuspid regurgitation, tricuspid regurgitation the procedure inadequate for calculation of the right ventricular systolic pressure. Pulmonic Valve Pulmonic valve is poorly visualized. Great Vessels Aortic root is normal size. Inferior vena cava normal size with normal inspiratory collapse. Pericardium No significant pericardial effusion noted. Conclusion 1. Mildly enlarged left atrium, normal left ventricular size, mild concentric left ventricular hypertrophy, visually estimated ejection fraction 55% with no regional wall motion abnormality, grade 1 diastolic dysfunction seen without tissue Doppler evidence of raise left atrial pressure. 2. Mild mitral and tricuspid regurgitation. 3. No significant pericardial effusion noted. 4. Inferior vena cava is normal size with normal inspiratory collapse. Electronically signed by : Rene Fernandez MD 05/31/2021 18:32:04
--- NOTE | 2021-05-31 08:13 | ECG_ITS ---
APPROVED REPORT Exam: Resting ECG HR:102 bpm ECG Measurements Heart Rate 102 AXES WA 150 P 50 QRSd 84 QRS 12 QT 330 T 55 QTc 430 Conclusion Sinus tachycardia Otherwise normal ECG Electronically signed by : Pratik Sofia MD 06/01/2021 21:22:44
[2021-05-31 08:32] LABS: Lymphocytes % 70 % (10-50); Monocytes % 3 % (2-9); Neutrophils % 26 % (42-76); Total Cells Counted 100
[2021-05-31 08:33] LABS: Platelet Estimate Slight Decrease; RBC Morphology Normal
--- NOTE | 2021-05-31 09:16 | HMH.OTEV ---
OT Inpatient Evaluation Rehab OT IP Evaluation Start: 05/31/21 08:31 Freq: ONCE Status: Complete Protocol: Document 05/31/21 09:05 TIM (Rec: 05/31/21 09:16 [id number] Rehab OT IP Assessment Subjective History Pt oriented x 3 on arrival. Pt was admitted via ED on 08/09 due to falls, weakness, and rib fx. Pt has a past medical history of Seizures. Pt reports he lived at home alone prior to being hospitalized. Pt claims he was independent with all ADLs. He explains he did minimal cleaning and cooking. Usually he only cooked microwave meals. He was able to do his laundry independently. His cousin would take him grocery shopping on Saturdays. He did use a walker outside of his home during ambulation. Subjective My side is hurting. Objective Patient Orientation Person,Place,Birthday Upper Extremity Gross ROM Min Limitation <25% Shoulder ROM Limitations Muscle Weakness Elbow ROM Limitations Muscle Weakness Wrist Limitations of Range of Motion Muscle Weakness Bed Mobility bed mobility-scooting,bed mobility - supine/sit,bed mobility - rolling Assist Level Minimal x 2 (25% assist) Transfer Training Sit/Stand Transfer Assist Level Moderate x 2 (50% assist) Chair Transfer Ability Moderate x 2 (50% assist) Chair Transfer Technique Sit to/from Ambulatory Chair Transfer Assistive Devices None Lower Body Dressing Ability Assistance X1 Performing Toilet Hygiene Ability Assistance X1 Rehab OT IP prob,goals,plan Problems Date of Evaluation: 05/31/21 OT IP Problems Bed Mobility,Transfers,Gait, Balance,Self care,Safety Rehab Potential Rehab Potential Good Equipment Needs Assistive Devices Rolling / Wheeled Walker Plan OT intervention Plan Bed Mobility,Transfers,Gait, Balance,Self care,Safety, Therapeutic Exercise OT Plan Frequency BID Duration LOS Discharge Goals Bed Mobility Ability Assistance x1 Sit to Stand Chair Transfer Ability Minimal x 1 (25% assist) Chair Transfer Ability
--- NOTE | 2021-05-31 09:21 | HMH.PTEV ---
Physical Therapy Evaluation Rehab PT IP Evaluation Start: 05/31/21 08:32 Freq: ONCE Status: Active Protocol: Document 05/31/21 08:59 VANESA (Rec: 05/31/21 09:20 VANESA [id number]) Subjective/History History History This is the initial evaluation for Hector Moses. Pt is a 80 y/o male admitted to [facility] for reportings of frequent falls, weakness, but denies seizure-like activity. - note done by Renata Ortiz, SPT Subjective Subjective Pt states he lives at home alone in a house that has a basement. Pt states he has no idea why he's been falling. Pt states that he can and has been taking care of his feeding, dressing, and cleaning at his house. Pt reports he uses no AD when home but does use a walker outside of the house for any walking distance. Pt states he does not drive but has a cousin that takes him to the grocery store every sunday. Pt reports he wears a diaper when walking and sleeps with a pee pad. Rehab PT IP Eval Objective Appearance Patient Behavior Appropriate,Cooperative Patient Orientation Person,Place,Time,Birthday Difficulty following instructions none Speech Pattern Clear,Appropriate,Coherent, Soft-Spoken,Monotone,Mumbled Balance Ability to Arise Unable Sitting Balance Leans or slides in chair Standing Balance Unsteady Dynamic Sitting Balance Ability Fair Dynamic Standing Balance Ability Poor Transfers Bed Transfer Ability Moderate x 2 (50% assist) Chair Transfer Ability Moderate x 1 (50% assist) Sit to Stand Bed Transfer Ability Moderate x 2 (50% assist) Sit to Stand Chair Transfer Ability Moderate x 2 (50% assist) Rehab PT IP prob,goals,plan Problems Date of Evaluation: 05/31/21 PT IP Problems Bed Mobility,Transfers,Gait, Balance,Self care,Safety Rehab Potential Rehab Potential Fair Equipment Needs Assistive Devices Rolling / Wheeled Walker Plan PT Intervention Plan Bed Mobility,Transfers,Gait,
--- NOTE | 2021-05-31 13:55 | SW/DCPLANNER ---
Addendum entered by Bethany Cates 06/03/21 09:54: PATIENT IS DISCHARGING TO [facility] TODAY AND WILL BE PRIVATE PAY... FAMILY WILL EITHER TRANSPORT OR PATIENT WILL GO VIA EMS..... Addendum entered by Bethany Cates 06/02/21 07:31: SPOKE WITH BROTHER A COUPLE OF TIMES YESTERDAY AND TOLD HIM MR OLVERA HAS BEEN ACCEPTED TO [facility] AND WILL DISCHARGE THERE ON SUNDAY PENDING NO SETBACKS.. I EXPLAINED THAT SOMEONE WILL NEED TO GO WITH HIM AND DO THE PAPERWORK AND PAY THE BILL.. BROTHER STATED HIS OTHER BROTHER CLARENCE WHOM IS THE POA WILL BE AVAILABLE TO ASSIST WITH WHAT NEEDS TO BE DONE AT THE [facility]... DR BRAUN IS IN AGREEMENT OF THE PLAN.. Addendum entered by Bethany Cates 06/01/21 10:56: SENT REFERRAL TO [facility]ILITY TO SEE IF THEY CAN TAKE THIS PATIENT.... RECEIVED A CALL LAST EVENING AND THEY HAVE ACCEPTED HIM FOR PLACEMENT, DR BRAUN STATED HE IS MEDICALLY READY AND CAN DISCHARGE THERE ON SUNDAY.. WILL CONTACT HIS POA THIS MORNING TO CONTACT FACILITY TO SET UP PAYMENT PLAN... Original Note: CALLED THIS PATIENTS BROTHER WHOM CARES FOR HIS FINANCES AND EXPLAINED TO HIM THAT OUR THERAPY DEPT STATED MR OLVERA IS NOT SAFE ENOUGH TO GO HOME AND NEEDS EITHER LTC PLACEMENT OR 12/03 WITH FAMILY... WAITING TO HEAR BACK....
--- NOTE | 2021-05-31 15:52 | HMH.SLDYSPHA ---
Speech & Language Evaluation Speech/Language Dysphagia Evaluation Start: 05/31/21 15:28 Freq: ONCE Status: Active Protocol: Document 05/31/21 15:28 CMAY (Rec: 05/31/21 15:52 CMAY [id number]) Dysphagia Assess/Goals/Plan Assessment Date of Evaluation: 05/31/21 Evaluation Type Initial Certification Assessment/Problems Concern of cough with swallow Does Patient Qualify for Service No Qualify/Failure Comment Patient does not qualify for ST services at this time based on the results of today's evaluation. Recommendations PHYSICIAN CERTIFICATION: The specified therapy services are required, authorized, and reviewed every 30 days. Diet Recommendations Normal Liquid Type Recommendations Normal/Thin SL Swallow Guidelines Alt bite w/sip thru meal, Standard Aspiration Prec. Dysphagia Swallow Precautions/Strategies Sitting Upright (90 deg), Alternate Liquids/Solids Plan Pt/Guardian verbally ack understanding Yes of dx/prognosis/goals G -code Required No Education Instructions provided Education provided to patient regarding swallowing safety strategies to implement such as sitting upright during intake and alternating bites/ sips to clear residue from oral cavity. Pt/Caregiver able to recall information Able to recall/restate Reinforcement needed No Speech & Language HPI Language Primary Language Serbian [place] Lang/Spoken in Home Serbian General Information General Current Food Consistancy Regular,Thin Liquids Dentition Good Dentition Oxygen Status Room Air Patient Orientation Person,Place Ability to Follow Directions Excellent Communication Ability No Impairment Dysphagia:Food Presentation Evaluation Food Type Pureed,Mechanical Soft,Regular ,Liquid,Pudding Dysphagia Evaluation Mechanical Soft Residual on tongue Food Behavior Response Dysphagia Evaluation Regular Food Residual on tongue Behavior Response Dysphagia Evaluation Summary Patient was alert & oriented x3. He voiced he has no difficulty when eating or drinking and does not experience coughing. He expressed that he eats whatever he pleases at home. NSG voiced that he did not
--- NOTE | 2021-05-31 16:53 | PC.NURSE ---
Patient is non tele and on room air. Patient is up with assist times one. Patient has been up to chair part of the day. Speech eval performed, patient to resume regular diet. Family updated on patient condition. No c/o per patient. Patient has had several visitors in room today. Bed in lowest position and phone and call light in reach. Will continue to monitor.
--- NOTE | 2021-05-31 23:14 | CT_ITS ---
PROCEDURE INFORMATION: Exam: CT Head Without Contrast Exam date and time: 05/31/2021 11:14 PM Age: 80 years old Clinical indication: Injury or trauma; Fall; Blunt trauma (contusions or hematomas); Additional info: Falls TECHNIQUE: Imaging protocol: Computed tomography of the head without contrast. 3D rendering (Not supervised by radiologist): MIP and/or 3D reconstructed images were created by the technologist. Radiation optimization: All CT scans at this facility use at least one of these dose optimization techniques: automated exposure control; mA and/or kV adjustment per patient size (includes targeted exams where dose is matched to clinical indication); or iterative reconstruction. COMPARISON: No relevant prior studies available. FINDINGS: Brain: No hemorrhage. Mild central and peripheral cerebral atrophy. Unremarkable white matter. No mass effect. Cerebral ventricles: Mild to moderate atrophy related global ventriculomegaly. No evidence of midline shift. Paranasal sinuses: Visualized sinuses are unremarkable. No fluid levels. Mastoid air cells: There is mucosal thickening without retained secretions within the left maxillary antrum. Remaining paranasal sinuses appear well aerated. Vasculature: Intraranial artery density is normal. Bones/joints: Unremarkable. No acute fracture. Soft tissues: Unremarkable. IMPRESSION: No mild central and peripheral cerebral atrophy with mild to moderate atrophy related global ventriculomegaly. There is no evidence of acute intracranial bleed or focal cerebral edema.
[2021-06-01] VITALS (10 sets, daily range): BP systolic 114–133; BP diastolic 56–72; PULSE 85–120; RESP 16–22; TEMP 37.1–38; O2SAT 94–97; BMI 22.8
--- NOTE | 2021-06-01 08:28 | HMH.ACPN2 ---
Internal Medicine - PN: Subj *Date: 06/01/21 *Time: 08:28 Interval history: Patient seems to do well overnight. No significant pain. Exam Vital signs and Labs for Last 24 Hours: Temp Pulse Resp BP Pulse Ox 99.2 F 109 H 17 133/72 94 L 06/01/21 08:00 06/01/21 08:00 06/01/21 08:00 06/01/21 08:00 06/01/21 08:00 Laboratory Results - last 24 hr 05/31/21 05:40: Total Counted 100, Neutrophils % (Manual) 26 L, Band Neutrophils % 1.0, Lymphocytes % (Manual) 70 H, Monocytes % (Manual) 3, Differential Comment , Platelet Estimate Slight decrease, RBC Morphology Normal I & O for Last 24 hours: Intake & Output 05/29/21 05/30/21 05/31/21 06/01/21 11:59 11:59 11:59 11:59 Intake Total 600 / 600 Output Total 0 / 0 0 / 0 Balance 0 / 0 600 / 600 Weight 129 lb 3 oz 129 lb 2 oz Microbiology Reports for the Last 24 Hours: Microbiology 05/30/21 22:55 Urine,Clean Catch Urine Culture - Preliminary NO GROWTH AFTER 24 HOURS Narrative: Patient is pleasant, talkative. Kyphotic posture remains. Lungs are clear, heart rate regular, no significant external rib deformity visualized. Extremities are warm and well-perfused with no edema. Neurologic exam unchanged from baseline. Abdomen is soft. No skin rash. ENT exam clear. Assessment and Plan (1) Ribs, multiple fractures Status: Acute Qualifiers: Encounter type: initial encounter Fracture type: closed Laterality: right Qualified Code(s): S22.41XA - Multiple fractures of ribs, right side, initial encounter for closed fracture Category: Medical Code(s): S22.49XA - Multiple fractures of ribs, unspecified side, initial encounter for closed fracture (2) CLL (chronic lymphocytic leukemia) Status: Chronic Category: Medical Code(s): C91.10 - Chronic lymphocytic leukemia of B-cell type not having achieved remission (3) Elevated troponin Status: Acute Category: Medical Code(s): R77.8 - Other specified abnormalities of plasma proteins (4) Fall Status: Acute Qualifiers: Encounter type: initial encounter Qualified Code(s): W19.XXXA - Unspecified fall, initial encounter Category: Medical Code(s): W19.XXXA - Unspecified fall, initial encounter (5) UTI (urinary tract infection) Status: Acute Qualifiers: Urinary tract infection type: site unspecified Hematuria presence: without hematuria Qualified Code(s): N39.0 - Urinary tract infection, site not specified Category: Medical Code(s): N39.0 - Urinary tract infection, site not specified - Assessment and plan all Dx Assessment and Plan for all problems:: Continue current antibiotics. Labs tomorrow. PT evaluation noted. Patient will tentatively be transferred to [facility] tomorrow for ongoing rehab.
--- NOTE | 2021-06-01 18:41 | PC.NURSE ---
Pt alert and oriented with intermittent situations to situation. VSS. CB in reach. Pt has no c/o at this time. No acute changes.
[2021-06-02] VITALS: BP 115/62; PULSE 100; PULSE 94; RESP 20; TEMP 37.2; O2SAT 97
[2021-06-02 04:00] VITALS: BP 126/61; PULSE 101; PULSE 105; RESP 20; TEMP 37.2; O2SAT 94
[2021-06-02 05:00] VITALS: BMI 22.8
--- NOTE | 2021-06-02 05:55 | PC.NURSE ---
pt AXOx4 with some intermittent confusion as shift progressed, no complaints this shift, remains on room air with sats 94-97%, did have a temp of 100.4 at beginning of shift, was treated per OCT and has remained afebrile since
--- NOTE | 2021-06-02 06:33 | PC.NURSE ---
when changing patient this morning he was noted to have a red rash like appearance to his abdomen and daniel area, pt states it doesn't itch
[2021-06-02 07:08] LABS: Basophils # 0.2 K/mm3 (0-0.2); Eosinophils # 0.1 K/mm3 (0.0-0.4); Eosinophils % 0.7 % (0.1-12.0); Hematocrit 38.3 % (42.0-52.0); Hemoglobin 12.5 g/dL (14.1-18.0); Lymphocytes # 14.3 K/mm3 (0.7-4.5); Lymphocytes % 76.9 % (10-50); Mean Corpuscular HGB Conc 32.7 g/dL (31.8-35.4); Monocytes # 0.3 K/mm3 (0.1-1.0); Monocytes % 1.4 % (1.7-9.3); Neutrophils # 3.7 K/mm3 (1.8-7.8); Platelet Count 132 K/mm3 (142-424); Red Cell Distribution Width 13.9 % (11.5-17.5); White Blood Count 18.6 K/mm3 (4.8-10.8)
[2021-06-02 07:09] LABS: MANUAL DIFFERENTIAL MANUAL DIFFERENTIAL (MANUAL DIFF)
[2021-06-02 07:22] LABS: Chloride 108 mmol/L (98-107); Potassium 4.3 mmoL/L (3.5-5.1); Sodium 138 mmol/L (136-145)
[2021-06-02 07:25] LABS: Anion Gap 9.3 mEq/L (5-15); Blood Urea Nitrogen 15 mg/dl (9-20); Carbon Dioxide 25 mmol/L (22.0-30.0); Creatinine Clearance Estimated 50 mL/min (50-200); Estimated Glomerular Filt Rate 93 ml/min (>60); GFR (African American) 113 ML/MIN (>60); Glucose 136 mg/dl (74-100)
[2021-06-02 07:38] LABS: Eosinophils % 1 % (0-3); Lymphocytes % 66 % (10-50); Macrocytosis 1+; Monocytes % 7 % (2-9); Neutrophils % 26 % (42-76); Platelet Estimate Normal; Total Cells Counted 100
[2021-06-02 08:00] VITALS: BP 114/50; PULSE 115; RESP 21; TEMP 36.9; O2SAT 97
--- NOTE | 2021-06-02 08:35 | HMH.ACPN2 ---
Internal Medicine - PN: Subj *Date: 06/02/21 *Time: 08:35 Interval history: Patient did well overnight. Nurses have noted a rash around where his adult protective garments are located. Otherwise he seems well, has minimal pain when he takes a deep breath Exam Vital signs and Labs for Last 24 Hours: Temp Pulse Resp BP Pulse Ox 98.4 F 115 H 21 114/50 L 97 06/02/21 08:00 06/02/21 08:00 06/02/21 08:00 06/02/21 08:00 06/02/21 08:00 Laboratory Results - last 24 hr 06/02/21 06:15: WBC 18.6 H, RBC 3.90 L, Hgb 12.5 L, Hct 38.3 L, MCV 98.0 H, MCH 32.0 H, MCHC 32.7, RDW 13.9, Plt Count 132 L, MPV 9.0, Neut % (Auto) 20.0 L, Lymph % (Auto) 76.9 H, [place] % (Auto) 1.4 L, Eos % (Auto) 0.7, Baso % (Auto) 1.0, Neut # (Auto) 3.7, Lymph # (Auto) 14.3 H, [place] # (Auto) 0.3, Eos # (Auto) 0.1, Baso # (Auto) 0.2, Total Counted 100, Neutrophils % (Manual) 26 L, Lymphocytes % (Manual) 66 H, Monocytes % (Manual) 7, Eosinophils % (Manual) 1, Platelet Estimate Normal, Macrocytosis 1+ 06/02/21 06:15: Sodium 138, Potassium 4.3, Chloride 108 H, Carbon Dioxide 25, Anion Gap 9.3, BUN 15 D, Creatinine 0.80, Estimated Creat Clear 50, Estimated GFR 93, Est GFR ( Amer) 113, Glucose 136 H, Calcium 8.0 L I & O for Last 24 hours: Intake & Output 05/30/21 05/31/21 06/01/21 06/02/21 11:59 11:59 11:59 11:59 Intake Total 600 / 600 2130 / 2130 Output Total 0 / 0 0 / 0 500 / 500 Balance 0 / 0 600 / 600 1630 / 1630 Weight 129 lb 3 oz 129 lb 2 oz 129 lb 2 oz Microbiology Reports for the Last 24 Hours: Microbiology 05/30/21 22:55 Urine,Clean Catch Urine Culture - Preliminary 05/30/21 23:48 Blood Blood Culture - Preliminary NO GROWTH AFTER 48 HOURS 05/30/21 23:48 Blood Blood Culture - Preliminary NO GROWTH AFTER 48 HOURS Narrative: Patient is kyphotic, unchanged, good air movement, heart rate regular. Abdomen slightly distended but soft. Does have a red confluent rash around his groin creases and lower abdomen consistent with a contact dermatitis. No edema in the ankles. Assessment and Plan (1) Ribs, multiple fractures Status: Acute Qualifiers: Encounter type: initial encounter Fracture type: closed Laterality: right Qualified Code(s): S22.41XA - Multiple fractures of ribs, right side, initial encounter for closed fracture Category: Medical Code(s): S22.49XA - Multiple fractures of ribs, unspecified side, initial encounter for closed fracture (2) CLL (chronic lymphocytic leukemia) Status: Chronic Category: Medical Code(s): C91.10 - Chronic lymphocytic leukemia of B-cell type not having achieved remission (3) Elevated troponin Status: Acute Category: Medical Code(s): R77.8 - Other specified abnormalities of plasma proteins (4) Fall Status: Acute Qualifiers: Encounter type: initial encounter Qualified Code(s): W19.XXXA - Unspecified fall, initial encounter Category: Medical Code(s): W19.XXXA - Unspecified fall, initial encounter (5) UTI (urinary tract infection) Status: Acute Qualifiers: Urinary tract infection type: site unspecified Hematuria presence: without hematuria Qualified Code(s): N39.0 - Urinary tract infection, site not specified Category: Medical Code(s): N39.0 - Urinary tract infection, site not specified - Assessment and plan all Dx Assessment and Plan for all problems:: Patient overall doing well, hydrocortisone for rash, Covid testing and plan for transfer to [facility] tomorrow
[2021-06-02 11:52] VITALS: BP 113/63; PULSE 84; RESP 16; TEMP 38.3; O2SAT 95
[2021-06-02 16:00] VITALS: BP 117/79; PULSE 90; RESP 19; TEMP 36.8; O2SAT 100
--- NOTE | 2021-06-02 19:28 | PC.NURSE ---
No acute changes this shift. Dr. Sofia aware of rash and ordered hyrdocortisone per oct.
[2021-06-02 20:00] VITALS: BP 120/44; PULSE 109; RESP 19; TEMP 37.9; O2SAT 94
[2021-06-03] VITALS: BP 121/57; PULSE 79; RESP 19; TEMP 37.7; O2SAT 95
[2021-06-03 04:00] VITALS: BP 135/63; PULSE 97; RESP 18; TEMP 37; O2SAT 95
[2021-06-03 04:53] VITALS: BMI 24.0
--- NOTE | 2021-06-03 05:49 | PC.NURSE ---
Shift summary. Pt was febrile at beginning of shift and c/o HOBSON. Pt tx with 650 mg tylenol with favorable results. bright red rash is present on daniel area, abdomen, bilat arms and bilat lower legs. Pt states it is not itching/burning. IV in left AC was pulled out. 20 g IV was inserted into right forearm administering NS @ 100. Pt currently resting in bed. VS stable. CB in reach. Will continue to monitor.
--- NOTE | 2021-06-03 06:32 | HMH.DCSUM ---
General - General Admission date:: 05/31/21 Discharge date: 06/03/21 HPI HPI: Mr. Montiel is a 80-year-old male with history of hypothyroidism, seizure disorder, who lives by himself. He has been having worsening debility with falls noted prior to coming to the ER but also noted in our outpatient chart over the past year and a half. He lives by himself. Ambulates with a walker. Presented to the ER yesterday due to falling at home and having right lower thoracic pain. Chronically debilitated appearing, thin with sarcopenia. Initial work-up with extensive imaging and labs showed persistent hyperthyroidism, nondisplaced fractures of right rib 10 and 11. Urine concerning for UTI. Additionally noted to have slight bump in his troponin and persistently elevated leukocytosis consistent with his CLL diagnosis. Patient unable to ambulate comfortably with safe disposition from the ER. Decision made to admit for further management including pain control and PT assessment. Concerned that patient may need placement. On assessment this morning, he complains of only some right lower rib pain. Denies any nausea, chest pain, vomiting, shortness of breath. States compliance with his medications (his Dilantin level was below threshold of test). Otherwise pleasant on exam Hospital Course Hospital Course: Mr. Moses is a 80-year-old male with hyperthyroidism, CLL, who presented to the ER after falling at home and sustaining rib fractures. Concern for UTI on admission. Initiated on antibiotics. Physical therapy assessed patient during admission. Given his level of need, recommended placement for skilled care. Transitioned to oral antibiotics to complete empiric course for UTI. Tolerating regular diet during hospitalization, speech assessed patient's swallowing ability, no concerns. developed rash during hospitalization. Initiated steroid cream Patient will be discharged to [facility]. Continue Dilantin for seizure disorder and PTU for hyperthyroidism. Examined on day of discharge. Medically stable. We will follow along with him for discharge. Objective Vital signs: Temp Pulse Resp BP Pulse Ox 98.6 F 97 H 18 135/63 95 06/03/21 04:00 06/03/21 04:00 06/03/21 04:00 06/03/21 04:00 06/03/21 04:00 Narrative: - Constitutional no acute distress, thin; Prominent ribs, bitemporal wasting - *Routine HEENT Exam Head: Present: normocephalic Eye: Present: EOMI, PERRL ENT: Present: mucous membranes moist - *Routine Neck Exam Present: supple. Absent: lymphadenopathy - Routine Chest/Breast/Axilla Exam Chest wall: Present: tenderness (Along right lower rib cage overlying ribs 9 through 12) - *Routine Respiratory Exam Present: CTA bilaterally - *Routine Cardiovascular Exam Present: RRR - *Routine Abdominal Exam Present: soft, normoactive bowel sounds. Absent: tenderness - *Routine Extremities Exam Absent: cyanosis, clubbing, edema - *Routine Skin Exam Present: warm. Absent: rash - *Routine Skin Exam Present: rash (Contact rash from adult diapers) Results Labs on day of discharge: Labs from last 24 hours 06/02/21 06/02/21 06:15 06:15 WBC 18.6 H RBC 3.90 L Hgb 12.5 L Hct 38.3 L MCV 98.0 H MCH 32.0 H MCHC 32.7 RDW 13.9 Plt Count 132 L MPV 9.0 Neut % (Auto) 20.0 L Lymph % (Auto) 76.9 H [place] % (Auto) 1.4 L Eos % (Auto) 0.7 Baso % (Auto) 1.0 Neut # (Auto) 3.7 Lymph # (Auto) 14.3 H [place] # (Auto) 0.3 Eos # (Auto) 0.1 Baso # (Auto) 0.2 Total Counted 100 Neutrophils % (Manual) 26 L Lymphocytes % (Manual) 66 H Monocytes % (Manual) 7 Eosinophils % (Manual) 1 Platelet Estimate Normal Macrocytosis 1+ Sodium 138 Potassium 4.3 Chloride 108 H Carbon Dioxide 25 Anion Gap 9.3 BUN 15 D Creatinine 0.80 Estimated Creat Clear 50 Estimated GFR 93 Est GFR ( Amer) 113 Glucose 136 H
[2021-06-03 08:00] VITALS: BP 117/54; PULSE 113; RESP 18; TEMP 37.7; O2SAT 96
[2021-06-03 11:13] LABS: Coronavirus 19, PCR Not Detected (NotDetected); Influenza A, PCR Not Detected (NotDetected); Influenza B, PCR Not Detected (NotDetected)
== END 2021-06-03 12:38 | DRG 184 ==
LOC: ER 21:28 → 2ND 05-31 01:19
PROVIDERS: Admitting Provider Internal Medicine Adolescent Medicine; Emergency Provider Emergency Medicine; PCP Internal Medicine Adolescent Medicine; Visit Provider Internal Medicine Adolescent Medicine
DX: S22.41XA Multiple fractures of ribs, right side, initial encounter for closed fracture (principal); N39.0 Urinary tract infection, site not specified; C91.10 Chronic lymphocytic leukemia of B-cell type not having achieved remission; E03.9 Hypothyroidism, unspecified; G40.909 Epilepsy, unspecified, not intractable, without status epilepticus; R29.6 Repeated falls; W01.0XXA Fall on same level from slipping, tripping and stumbling without subsequent striking against object, initial encounter; Z91.81 History of falling; Y92.009 Unspecified place in unspecified non-institutional (private) residence as the place of occurrence of the external cause; M62.84 Sarcopenia; Z20.822 Contact with and (suspected) exposure to COVID-19
CPT/HCPCS: 36415; 70450; 71045; 71260; 72170; 74177; 80048; 80053; 80185; 81001; 83605; 83735; 84436; 84443; 84484; 85007; 85025; 87040; 87086; 87088; 92610; 93005; 93306; 96365; 97110; 97161; 97166; 97530; 97535; 99285; C9803; Q9967; U0003; U0005

== ENCOUNTER 2021-09-04 15:47 | Inpatient (IN) | payer OTHER, SELFPAY ==
[2021-09-04] VITALS (30 sets, daily range): BP systolic 73–126; BP diastolic 35–71; PULSE 90–136; RESP 25–58; TEMP 38.6–39.7; O2SAT 92–100; BMI 20.9; BMI 17.4
--- NOTE | 2021-09-04 15:55 | XR_ITS ---
PROCEDURE INFORMATION: Exam: XR Chest Exam date and time: 09/04/2021 3:55 PM Age: 80 years old Clinical indication: Dyspnea and shortness of breath; Additional info: Dyspnea, hypoxia TECHNIQUE: Imaging protocol: XR of the chest. Views: 1 view. COMPARISON: CT CHEST W CON 05/30/2021 9:33 PM FINDINGS: Lungs: No acute airspace consolidation. Chronic interstitial lung markings. Pleural spaces: Unremarkable. No pleural effusion. No pneumothorax. Heart/Mediastinum: Unremarkable. No cardiomegaly. Bones/joints: Old left 3rd rib fracture. IMPRESSION: No acute findings.
[2021-09-04 16:04] LABS: Microscopic, Urine URINE MICROSCOPIC (MICROSCOPIC)
--- NOTE | 2021-09-04 16:12 | ECG_ITS ---
APPROVED REPORT Exam: Resting ECG HR:135 bpm ECG Measurements Heart Rate 135 AXES [place] 134 P 25 QRSd 78 QRS -1 QT 298 T 58 QTc 447 Conclusion Sinus tachycardia Otherwise normal ECG Electronically signed by : Pratik Sofia MD 09/06/2021 19:59:35
--- NOTE | 2021-09-04 16:15 | HMH.EDGENADL ---
ED Disposition Clinical Impression: CLL (chronic lymphocytic leukemia), Fall, Elevated troponin, Sepsis associated hypotension, Septic shock Disposition: Admitted As Inpatient Condition on Discharge: Critical - Critical Care Critical Care Time: Yes Attestation: On 09/04/21, the high probability of a clinically significant, sudden or life threatening deterioration of the following system(s) required my full and direct attention, intervention and personal management. The time I documented below is in addition to time spent performing reported procedures but includes the following listed in this critical care notation. Total Critical Care Time: 30 Vital system(s) involved:: Circulatory Failure, Metabolic Failure, Respiratory Failure, Shock (Septic) My critical care processes included: Assessment & monitoring of V/S, Initial and Re-exams, Data Review/Interpretation, Coordinating Care, Medication Orders and management Medical Decision Making - Medical Records Medical records reviewed: Yes: I reviewed the patient's medical records. - Farzad Inquiry Pt receiving controlled substance: No Vital Signs: 09/04/21 15:47 09/04/21 16:12 09/04/21 16:15 Temperature 103.4 F H Temperature Source Rectal Pulse Rate 134 H 130 H Pulse Rate [Radial] 135 H Respiratory Rate 48 H 49 H 56 H Blood Pressure 76/43 L 75/42 L Blood Pressure [Right Arm] 75/42 L Blood Pressure Mean Blood Pressure Mean [Right Arm] 53 Blood Pressure Position [Right Arm] Sitting 02 Sat by Pulse Oximetry 92 L 98 100 Oxygen Delivery Method Non-Rebreather Oxygen Flow Rate (LPM) 15 09/04/21 16:20 09/04/21 16:22 09/04/21 16:30 Temperature Temperature Source Pulse Rate 128 H 135 H Pulse Rate [Radial] Respiratory Rate 58 H 45 H Blood Pressure 73/41 L 74/44 L Blood Pressure [Right Arm] Blood Pressure Mean Blood Pressure Mean [Right Arm] Blood Pressure Position [Right Arm] 02 Sat by Pulse Oximetry 93 L 100 98 Oxygen Delivery Method Vapotherm Oxygen Flow Rate (LPM) 40 09/04/21 16:40 09/04/21 16:52 09/04/21 16:57 Temperature Temperature Source Pulse Rate 129 H 131 H 130 H Pulse Rate [Radial] Respiratory Rate 56 H 30 H 51 H Blood Pressure 81/51 L 82/44 L 73/39 L Blood Pressure [Right Arm] Blood Pressure Mean Blood Pressure Mean [Right Arm] Blood Pressure Position [Right Arm] 02 Sat by Pulse Oximetry 99 99 100 Oxygen Delivery Method Oxygen Flow Rate (LPM) 09/04/21 17:01 09/04/21 17:02 09/04/21 17:15 Temperature Temperature Source Pulse Rate 134 H 134 H 135 H Pulse Rate [Radial] Respiratory Rate 25 H 57 H 50 H Blood Pressure 100/54 L 96/49 L 103/53 L Blood Pressure [Right Arm] Blood Pressure Mean Blood Pressure Mean [Right Arm] Blood Pressure Position [Right Arm] 02 Sat by Pulse Oximetry 100 99 100 Oxygen Delivery Method Oxygen Flow Rate (LPM) 09/04/21 17:20 09/04/21 17:31 09/04/21 18:14 Temperature Temperature Source Pulse Rate 136 H 133 H Pulse Rate [Radial] Respiratory Rate 49 H 35 H Blood Pressure 105/65 L 116/53 L 96/61 L Blood Pressure [Right Arm] Blood Pressure Mean 69 Blood Pressure Mean [Right Arm] Blood Pressure Position [Right Arm] 02 Sat by Pulse Oximetry 100 99 Oxygen Delivery Method Oxygen Flow Rate (LPM) 09/04/21 18:20 09/04/21 18:32 09/04/21 18:40 Temperature Temperature Source Pulse Rate 127 H 131 H 131 H Pulse Rate [Radial] Respiratory Rate 42 H 53 H 54 H Blood Pressure 96/61 L 118/71 116/58 L Blood Pressure [Right Arm] Blood Pressure Mean 79 70 Blood Pressure Mean [Right Arm] Blood Pressure Position [Right Arm] 02 Sat by Pulse Oximetry 99 Oxygen Delivery Method Vapotherm Oxygen Flow Rate (LPM) - Lab Data Lab results reviewed: Yes: I reviewed the patient's lab results. Lab Results 09/04/21 15:30: Gastric Occult Blood Negative 09/04/21 15:56: SARS
[2021-09-04 16:18] LABS: ABG Base Excess -2.3 mmol/L (-2.4-2.3); ABG HCO3 21.2 mmhg (22.0-26.0); ABG Oxygen Saturation 96 % (90-100); ABG PCO2 29.3 mmhg (35.0-45.0); ABG PH 7.48 mmol/L (7.35-7.45); ABG PO2 78.5 mmhg (80-100); ABG TCO2 22.1 mmhg (23-27)
--- NOTE | 2021-09-04 16:18 | CT_ITS ---
PROCEDURE INFORMATION: Exam: CT Abdomen And Pelvis With Contrast Exam date and time: 09/04/2021 4:18 PM Age: 80 years old Clinical indication: Other: Dark emisis; Additional info: Dark emesis TECHNIQUE: Imaging protocol: Computed tomography of the abdomen and pelvis with contrast. Radiation optimization: All CT scans at this facility use at least one of these dose optimization techniques: automated exposure control; mA and/or kV adjustment per patient size (includes targeted exams where dose is matched to clinical indication); or iterative reconstruction. Contrast material: ISOVUE; Contrast volume: 70 ml; Contrast route: IV; COMPARISON: CT ABDOMEN PELVIS W CON 05/30/2021 9:33 PM FINDINGS: Liver: Hepatomegaly. No mass. Gallbladder and bile ducts: Cholecystectomy. Pancreas: Normal. No ductal dilation. Spleen: Splenomegaly. No mass. Adrenal glands: Normal. No mass. Kidneys and ureters: Right renal atrophy. Bilateral simple renal cysts measuring up to 2.2 cm. Stomach and bowel: Mildly dilated, fluid-filled loops of small bowel. Appendix: No evidence of appendicitis. Intraperitoneal space: Unremarkable. No free air. No significant fluid collection. Vasculature: Mild atherosclerotic changes are seen within the abdominal aorta and branch vasculature without evidence of aneurysm. Lymph nodes: Mildly enlarged bilateral inguinal region lymph nodes are unchanged. Urinary bladder: Adams catheter decompresses the urinary bladder. Nonspecific bubbles of air adjacent to the anterior and left margins of the decompressed urinary bladder. Reproductive: Prostatectomy. Bones/joints: Unremarkable. No acute fracture. Soft tissues: Surgical clips in the lower pelvis and right inguinal region. Additional surgical clips along the anterior abdominal wall. IMPRESSION: 1. Small bubbles of air adjacent to the anterior and left margins of a decompressed urinary bladder. Fine this finding is nonspecific. If there is a history of pelvic trauma, consider cystogram to exclude urinary bladder injury. 2. Hepatosplenomegaly. 3. Right renal atrophy and bilateral simple renal cysts. No follow-up imaging is recommended. 4. Bilateral inguinal adenopathy, unchanged. COMMENTS: Consistent with the [employer]'s Incidental Findings Committee white paper (J Am Aly Radiol 2018): Any incidental renal lesion less than 1 cm or classified as too small to characterize, or any incidental cystic renal lesion characterized as simple-appearing, is likely benign. No follow-up imaging is recommended for these lesions per consensus recommendations based on imaging criteria. Please refer to accompanying CT chest report for additional information.
--- NOTE | 2021-09-04 16:18 | CT_ITS ---
PROCEDURE INFORMATION: Exam: CTA Chest With Contrast Exam date and time: 09/04/2021 4:18 PM Age: 80 years old Clinical indication: Shortness of breath; Additional info: Hypoxia TECHNIQUE: Imaging protocol: Computed tomographic angiography of the chest with contrast. 3D rendering (Not supervised by radiologist): MIP and/or 3D reconstructed images were created by the technologist. Radiation optimization: All CT scans at this facility use at least one of these dose optimization techniques: automated exposure control; mA and/or kV adjustment per patient size (includes targeted exams where dose is matched to clinical indication); or iterative reconstruction. Contrast material: ISOVUE 370; Contrast volume: 70 ml; Contrast route: INTRAVENOUS (IV); COMPARISON: CT CHEST W CON 05/30/2021 9:33 PM FINDINGS: Pulmonary arteries: Normal. No pulmonary emboli. Aorta: Unremarkable. No aortic aneurysm. No aortic dissection. Lungs: Bibasilar atelectasis and faint airspace disease. Pleural spaces: Unremarkable. No pneumothorax. No pleural effusion. Heart: Unremarkable. No cardiomegaly. No pericardial effusion. Lymph nodes: See Soft tissues finding. Bones/joints: Old right-sided rib fractures. Soft tissues: Bilateral supraclavicular and axillary region lymphadenopathy. The largest lymph node is located in the right axilla on image 163, series 10 measuring 1.3 cm in short axis diameter. IMPRESSION: 1. Nonspecific bilateral supraclavicular and axillary region lymphadenopathy, unchanged from the previous exam. 2. Bibasilar atelectasis and faint airspace disease.
[2021-09-04 16:20] LABS: Allen's Test Patient Unable; Source Right Brachial
[2021-09-04 16:23] LABS: Appearance,Urine CLEAR (Clear); Bilirubin,Urine Negative (Negative); Blood, Urine 2+ (Negative); Color,Urine YELLOW (Yellow); Glucose,Urine (UA) Negative (Negative); Ketones,Urine Negative (Negative); Leukocyte Esterase,Urine Negative (Negative); Nitrate,Urine Negative (Negative); Protein,Urine TRACE (Negative); Specific Gravity, Urine 1.015 (1.005-1.030); Urobilinogen,Urine 0.2 EU/dl (0.2)
[2021-09-04 16:26] LABS: Coronavirus 19, PCR Not Detected (NotDetected); Influenza A, PCR Not Detected (NotDetected); Influenza B, PCR Not Detected (NotDetected)
[2021-09-04 16:27] LABS: Occult Blood,Gastric Fluid Negative (Negative)
[2021-09-04 16:36] LABS: Alanine Aminotransferase 46 U/L (12-78); Albumin Level 4.6 g/dl (3.5-5.0); Albumin/Globulin Ratio 1.5 (1.1-1.8); Alkaline Phosphatase 144 U/L (38-126); Anion Gap 15.4 mEq/L (5-15); Aspartate Amino Transferase 59 U/L (17-59); Bilirubin,Total 0.8 mg/dl (0.2-1.3); Blood Urea Nitrogen 37 mg/dl (9-20); Calcium 10.7 mg/dl (8.4-10.2); Carbon Dioxide 25 mmol/L (22.0-30.0); Chloride 103 mmol/L (98-107); Creatinine Clearance Estimated 45 mL/min (50-200); Estimated Glomerular Filt Rate 53 ml/min (>60); GFR (African American) 65 ML/MIN (>60); Glucose 129 mg/dl (74-100); Potassium 3.4 mmoL/L (3.5-5.1); Sodium 140 mmol/L (136-145); Total Protein,Serum 7.6 g/dl (6.3-8.2)
[2021-09-04 16:37] LABS: Lactic Acid 2.6 mmol/L (0.7-2.1)
[2021-09-04 16:41] LABS: Basophils # 0.1 K/mm3 (0-0.2); Basophils % 0.9 % (0.1-2.0); Hematocrit 50.3 % (42.0-52.0); Hemoglobin 15.8 g/dL (14.1-18.0); Lymphocytes # 11.1 K/mm3 (0.7-4.5); Lymphocytes % 69.6 % (10-50); Mean Corpuscular HGB Conc 31.3 g/dL (31.8-35.4); Mean Corpuscular Hemoglobin 32.5 pg (27.0-31.2); Mean Corpuscular Volume 103.6 fl (80-94); Mean Platelet Volume 9.9 fl (7.4-10.4); Monocytes # 0.3 K/mm3 (0.1-1.0); Monocytes % 1.7 % (1.7-9.3); Neutrophils # 4.4 K/mm3 (1.8-7.8); Neutrophils % 27.8 % (37.0-80.0); Platelet Count 109 K/mm3 (142-424); Red Blood Count 4.85 M/mm3 (4.60-6.20); Red Cell Distribution Width 13.4 % (11.5-17.5); White Blood Count 15.9 K/mm3 (4.8-10.8)
[2021-09-04 16:42] LABS: Amorphous Sediment,Urine 2+ /lpf; Bacteria,Urine Trace /lpf
[2021-09-04 16:44] LABS: MANUAL DIFFERENTIAL MANUAL DIFFERENTIAL (MANUAL DIFF)
[2021-09-04 16:49] LABS: Troponin I 0.21 ng/ml (0.00-0.034)
--- NOTE | 2021-09-04 16:50 | PC.NURSE ---
Critical lab called to [facility]
--- NOTE | 2021-09-04 17:20 | CT_ITS ---
PROCEDURE INFORMATION: Exam: CT Head Without Contrast Exam date and time: 09/04/2021 5:20 PM Age: 80 years old Clinical indication: Injury or trauma; Fall; Blunt trauma (contusions or hematomas); Consciousness not specified; Injury date: 09/03/21 TECHNIQUE: Imaging protocol: Computed tomography of the head without contrast. Total images: 281 Radiation optimization: All CT scans at this facility use at least one of these dose optimization techniques: automated exposure control; mA and/or kV adjustment per patient size (includes targeted exams where dose is matched to clinical indication); or iterative reconstruction. COMPARISON: CT HEAD/BRAIN WO CON 05/31/2021 12:37 AM FINDINGS: Brain: Mild-moderate generalized atrophy. Minimal bilateral white matter hypodensities which are nonspecific but most commonly associated with chronic microvascular ischemia in this age group. No extra-axial fluid collections. Punctate cortical calcification in the right parietal distribution. No evidence of acute intracranial hemorrhage. Mccartney-white differentiation is well maintained. No CT evidence of large territory acute or subacute intracranial ischemia/infarct. No intracranial mass lesions. No midline shift or herniation. Cerebral ventricles: Mild compensatory ventriculomegaly secondary to central atrophy. Paranasal sinuses: Small left maxillary sinus with wall thickening and peripheral mucosal thickening consistent with changes of chronic sinus inflammatory disease. Additional partial opacification of the left anterior ethmoids. No fluid levels. Mastoid air cells: Visualized mastoid air cells are clear. Orbital cavity: Visualized orbital contents demonstrate no acute abnormality. Vasculature: Moderate calcific atherosclerosis. No asymmetric vascular hyperdensities suggestive of thrombosis are identified. Bones/joints: The calvarium and visualized facial bones are intact. Soft tissues: The scalp and visualized soft tissues demonstrate no acute abnormality. Other findings: The IACs are grossly normal. The sella is grossly normal. IMPRESSION: 1. No acute intracranial process. No intracranial hemorrhage or mass effect. 2. Atrophy and chronic microvascular changes consistent with age. 3. Moderate calcific atherosclerosis. 4. Evidence of chronic sinusitis.
--- NOTE | 2021-09-04 17:20 | CT_ITS ---
PROCEDURE INFORMATION: Exam: CT Cervical Spine Without Contrast Exam date and time: 09/04/2021 5:20 PM Age: 80 years old Clinical indication: Injury or trauma; Fall; Blunt trauma; Injury date: 09/03/21 TECHNIQUE: Imaging protocol: Computed tomography images of the cervical spine without contrast. Radiation optimization: All CT scans at this facility use at least one of these dose optimization techniques: automated exposure control; mA and/or kV adjustment per patient size (includes targeted exams where dose is matched to clinical indication); or iterative reconstruction. COMPARISON: CT HEAD/BRAIN WO CON 09/04/2021 5:44 PM FINDINGS: Bones/joints: No acute fracture. Normal alignment. Discs/Spinal canal/Neural foramina: Obliteration of the C5-C6 disc space. Severe disc space narrowing at C3-C4. Mild disc space narrowing and vacuum discs at C4-C5 and C6-C7. Multilevel endplate osteophytes. No significant disc protrusion. No severe spinal canal stenosis. Mild bilateral bony foraminal stenosis seen is at C4-C5, C5-C6 and C6-C7. Lungs: Lung apices are normal. Soft tissues: Unremarkable. IMPRESSION: No acute findings.
--- NOTE | 2021-09-04 17:35 | CT_ITS ---
PROCEDURE INFORMATION: Exam: CT Pelvis Without Contrast; Skeletal Exam date and time: 09/04/2021 5:35 PM Age: 80 years old Clinical indication: Injury or trauma; Fall; Blunt trauma (contusions or hematomas); Bilateral; Pelvic region; Injury date: 09/03/21 TECHNIQUE: Imaging protocol: Computed tomography images of the pelvis without contrast. Exam focused on the skeletal structures. Radiation optimization: All CT scans at this facility use at least one of these dose optimization techniques: automated exposure control; mA and/or kV adjustment per patient size (includes targeted exams where dose is matched to clinical indication); or iterative reconstruction. COMPARISON: CT ABDOMEN PELVIS W CON 09/04/2021 5:51 PM FINDINGS: Bladder: Adams catheter within a decompressed urinary bladder. Reproductive: Prostatectomy. Bones/joints: No acute fracture or dislocation. Mild bilateral hip joint space narrowing. SI joints and pubic symphysis are unremarkable. Soft tissues: Surgical clips in the central pelvis right inguinal region and lower abdominal wall. IMPRESSION: No acute findings.
--- NOTE | 2021-09-04 17:42 | PC.NURSE ---
pt to rad
[2021-09-04 17:52] LABS: Troponin I 0.21 ng/ml (0.00-0.034)
[2021-09-04 18:09] LABS: Lymphocytes % 68 % (10-50); Neutrophils % 26 % (42-76); Thyroid Stimulating Hormone < 0.02 uIU/mL (0.465-4.68); Total Cells Counted 100
--- NOTE | 2021-09-04 18:09 | PC.NURSE ---
pt returned to room from radiology
[2021-09-04 18:10] LABS: Hypochromasia 1+; Macrocytosis 2+; Platelet Estimate Slight Decrease
--- NOTE | 2021-09-04 18:19 | PC.NURSE ---
PT ATTEMPTING TO ANSWERS QUESTIONS. ANSWERS YES OR NO.
--- NOTE | 2021-09-04 18:58 | PC.NURSE ---
call placed to dr garay per . agreeable for admit. dta placed. call placed to [facility] for bed assignment. was informed they will need to move patients around. madhavi with lab at bedside.
[2021-09-04 19:13] LABS: Reflex Lactic Add Lactic Reflex
--- NOTE | 2021-09-04 19:37 | PC.NURSE ---
PT ARRIVED TO FLOOR FROM ED W/STAFF @ 1974
[2021-09-04 19:53] LABS: Troponin I 0.27 ng/ml (0.00-0.034)
--- NOTE | 2021-09-04 19:53 | PC.NURSE ---
Jose from lab called at this time to report a critical troponin on the patient Value of 0.27 Name, , and value verified x2. check writer salesperson paged.
--- NOTE | 2021-09-04 20:00 | PC.NURSE ---
pt admitted to 216 from ER, levo on 12mcg/min, bp 113/40
--- NOTE | 2021-09-04 20:54 | PC.NURSE ---
pt's bp 84/46 (58), increased levo drip to 14 mcg/min
--- NOTE | 2021-09-04 21:01 | PC.NURSE ---
pt's bp 79/35 (49), increased levo drip to 20mcg/min
[2021-09-04 21:18] LABS: Reflex Lactic (2 hrs) Add Lactic Reflex
--- NOTE | 2021-09-04 21:34 | PC.NURSE ---
bp 87/42 (57), increased levo drip to 22mcg/min per protocol
[2021-09-04 22:24] LABS: Lactic Acid Follow up (RFLX 2) 1.6 mmol/L (0.7-2.1)
--- NOTE | 2021-09-04 22:32 | PC.NURSE ---
pt's bp 83/38 (53), increased levo drip to 25mcg/min
--- NOTE | 2021-09-04 23:05 | PC.NURSE ---
pt's bp 88/41 (56). increased levo drip to 27mcg/min
--- NOTE | 2021-09-04 23:47 | PC.NURSE ---
pt's bp 126/59 (81), decrease levo drip to 25mcg/min
[2021-09-05] VITALS (38 sets, daily range): BP systolic 70–136; BP diastolic 35–72; PULSE 70–148; RESP 16–40; TEMP 36.7–37.7; O2SAT 90–100
--- NOTE | 2021-09-05 00:46 | PC.NURSE ---
bp 87/41 (56), increased levo drip to 27mcg/min
--- NOTE | 2021-09-05 01:02 | PC.NURSE ---
bp 86/42 (56) increased levo drip to 29mcg/min
--- NOTE | 2021-09-05 01:30 | PC.NURSE ---
bp 98/35 (56), decreased levo drip to 27mcg/min
--- NOTE | 2021-09-05 02:05 | PC.NURSE ---
bp 98/43 (61), decreased levo to 25mcg/min
--- NOTE | 2021-09-05 04:25 | PC.NURSE ---
0215 bp 85/44 (57), increased levo drip to 27 0300 bp 89/43 (58), increased levo drip to 29 0330 bp 100/47 (64), decreased levo drip to 27 0345 bp 106/50 (68), decreased levo drip to 25 0400 bp 100/50 (66), decreased levo drip to 23 0415 bp 103/51 (68), decreased levo drip to 20
--- NOTE | 2021-09-05 06:37 | PC.NURSE ---
0515-pt bp 108/48 (68), decreased levo drip to 18mcg/min 0539-pt bp 123/72 (89), decreased levo drip to 16mcg/min 0600-pt bp 124/61 (82), decreased levo drip to 14mcg/min 0615-pt bp 113/58 (76), decreased levo drip to 12mcg/min
[2021-09-05 07:06] LABS: Lactic Acid 2.1 mmol/L (0.7-2.1)
--- NOTE | 2021-09-05 07:20 | P.CONPHA_ITS ---
[facility] Pharmacy VTE Monitoring - Patient Demographics Admission date: 09/04/21 Report Date: 09/05/21 Time: 07:20 Allergies/Adverse Reactions: Patient Allergies No Known Allergies Allergy (Verified 05/30/21 20:54) Height: 1.8 m Weight: 56.5 kg Patient Problems: Current Active Problems Fall (Acute) CLL (chronic lymphocytic leukemia) (Chronic) Elevated troponin (Acute) Sepsis associated hypotension (Acute) Septic shock (Acute) - VTE Risk Labs: VTE Related Lab Results Hgb 15.8 g/dL (14.1-18.0) 09/04/21 16:02 Hct 50.3 % (42.0-52.0) 09/04/21 16:02 Plt Count 109 K/mm3 (142-424) L 09/04/21 16:02 BUN 37 mg/dl (9-20) H 09/04/21 16:02 Creatinine 1.30 mg/dl (0.66-1.25) H 09/04/21 16:02 Estimated Creat Clear 45 mL/min (50-200) 09/04/21 16:02 - Prophylaxis VTE Prophylaxis Ordered?: Yes Types of VTE Prophylaxis: TEDS Knee High Location of Applied Device: Bilateral Lower Extremeties
--- NOTE | 2021-09-05 07:27 | HMH.PHAINT ---
MEDICATION RECONCILIATION COMPLETED ON PATIENT USING MAR FROM [facility]. -NAEEM MENDEZ, LEANDRAD
[2021-09-05 07:43] LABS: Basophils # 0.2 K/mm3 (0-0.2); Basophils % 1.1 % (0.1-2.0); Eosinophils % 0.2 % (0.1-12.0); Hematocrit 45.8 % (42.0-52.0); Hemoglobin 14.7 g/dL (14.1-18.0); Lymphocytes # 12.3 K/mm3 (0.7-4.5); Lymphocytes % 74.7 % (10-50); Mean Corpuscular HGB Conc 32.2 g/dL (31.8-35.4); Mean Corpuscular Hemoglobin 32.7 pg (27.0-31.2); Mean Corpuscular Volume 101.5 fl (80-94); Mean Platelet Volume 9.5 fl (7.4-10.4); Monocytes # 0.1 K/mm3 (0.1-1.0); Monocytes % 0.7 % (1.7-9.3); Neutrophils # 3.8 K/mm3 (1.8-7.8); Neutrophils % 23.3 % (37.0-80.0); Platelet Count 91 K/mm3 (142-424); Red Blood Count 4.51 M/mm3 (4.60-6.20); Red Cell Distribution Width 13.8 % (11.5-17.5); White Blood Count 16.5 K/mm3 (4.8-10.8)
[2021-09-05 07:46] LABS: MANUAL DIFFERENTIAL MANUAL DIFFERENTIAL (MANUAL DIFF)
[2021-09-05 07:48] LABS: Anion Gap 11.3 mEq/L (5-15); Blood Urea Nitrogen 37 mg/dl (9-20); Carbon Dioxide 24 mmol/L (22.0-30.0); Chloride 106 mmol/L (98-107); Creatinine Clearance Estimated 41 mL/min (50-200); Estimated Glomerular Filt Rate 59 ml/min (>60); GFR (African American) 71 ML/MIN (>60); Glucose 85 mg/dl (74-100); Potassium 3.3 mmoL/L (3.5-5.1); Sodium 138 mmol/L (136-145)
--- NOTE | 2021-09-05 07:50 | HMH.PHACONS ---
- Pharmacy Consult Date: 09/05/21 Time: 07:50 Referring provider: DR KIMBLE Reason for Consult:: VANCOMYCIN DOSING CONSULT Allergies and ADEs:: Allergies Allergy/AdvReac Type Severity Reaction Status Date / Time No Known Allergies Allergy Verified 05/30/21 20:54 Home Medications:: Home Medications Medication Instructions Recorded Confirmed Type Phenytoin Sodium Extended 400 mg PO Q48H 30 Days #60 cap 06/03/21 09/04/21 Rx [Dilantin] Acetaminophen [Acetaminophen Extra 500 mg PO Q4HP PRN 09/05/21 09/05/21 History Strength] polyethylene glycoL 3350 [Miralax 17 gm PO DAILYP PRN 09/05/21 09/05/21 History 17gm Packet] propylthiouraciL [Propylthiouracil 75 mg PO TID 09/05/21 09/05/21 History 50mg Tablet] Height: 1.8 m Weight: 56.5 kg Laboratory Results:: Laboratory Results - last 24 hr 09/04/21 15:30: Gastric Occult Blood Negative 09/04/21 15:56: SARS-CoV-2 (PCR) Not detected, Influenza A Untype (PCR) Not detected, Influenza Type B (PCR) Not detected 09/04/21 16:00: Urine Color Yellow, Urine Appearance Clear, Urine pH 6.0, Ur Specific [place] 1.015, Urine Protein Trace, Urine Glucose (UA) Negative, Urine Ketones Negative, Urine Blood 2+, Urine Nitrate Negative, Urine Bilirubin Negative, Urine Urobilinogen 0.2, Ur Leukocyte Esterase Negative, Urine RBC 3-5, Urine WBC 3-5, Ur Squamous Epith Cells 3-5, Ur Renal Epithelial Cell 10-20, Amorphous Sediment 2+, Urine Bacteria Trace 09/04/21 16:02: WBC 15.9 H, RBC 4.85, Hgb 15.8, Hct 50.3, MCV 103.6 H, MCH 32.5 H, MCHC 31.3 L, RDW 13.4, Plt Count 109 L, MPV 9.9, Neut % (Auto) 27.8 L, Lymph % (Auto) 69.6 H, [place] % (Auto) 1.7, Eos % (Auto) 0.0 L, Baso % (Auto) 0.9, Neut # (Auto) 4.4, Lymph # (Auto) 11.1 H, [place] # (Auto) 0.3, Eos # (Auto) 0.0, Baso # (Auto) 0.1, Total Counted 100, Neutrophils % (Manual) 26 L, Band Neutrophils % 6.0, Lymphocytes % (Manual) 68 H, Platelet Estimate Slight decrease, Hypochromasia 1+, Macrocytosis 2+ 09/04/21 16:02: Sodium 140, Potassium 3.4 L, Chloride 103, Carbon Dioxide 25, Anion Gap 15.4 H, BUN 37 H, Creatinine 1.30 H, Estimated Creat Clear 45, Estimated GFR 53 L, Est GFR ( Amer) 65, Glucose 129 H, Calcium 10.7 H, Total Bilirubin 0.8, AST 59, ALT 46, Alkaline Phosphatase 144 H, Troponin I 0.21 H, Total Protein 7.6, Albumin 4.6, Globulin 3.0, Albumin/Globulin Ratio 1.5 09/04/21 16:02: Lactate 2.6 H 09/04/21 16:02: Troponin I 0.21 H, TSH < 0.02 L 09/04/21 16:02: Free T4 1.70 09/04/21 16:13: Specimen Source Right brachial, O2 % Nrb 15l, 100%, ABG pH 7.48 H, ABG pCO2 29.3 L, ABG pO2 78.5 L, ABG HCO3 21.2 L, ABG Total CO2 22.1 L, ABG O2 Saturation 96, ABG Base Excess -2.3, Shantanu Test Patient unable 09/04/21 19:07: Lactate 3.0 H 09/04/21 19:07: Troponin I 0.27 H 09/04/21 21:47: Lactate 1.6 09/05/21 06:46: Lactate 2.1 09/05/21 06:46: WBC 16.5 H, RBC 4.51 L, Hgb 14.7, Hct 45.8, MCV 101.5 H, MCH 32.7 H, MCHC 32.2, RDW 13.8, Plt Count 91 L, MPV 9.5, Neut % (Auto) 23.3 L, Lymph % (Auto) 74.7 H, [place] % (Auto) 0.7 L, Eos % (Auto) 0.2, Baso % (Auto) 1.1, Neut # (Auto) 3.8, Lymph # (Auto) 12.3 H, [place] # (Auto) 0.1, Eos # (Auto) 0.0, Baso # (Auto) 0.2 Medical History: Reports:: Cancer (chronic lymphocytic leukemia of [facility]), Seizures Denies:: Diabetes Mellitus Type 1, Diabetes Mellitus Type 2, Internal Pacemaker, Lung Disease Assessment and Plan - Assessment and plan all Dx Assessment and Plan for all problems:: Pharmacokinetic dosing service Objective: Age: 80 yo Serum creatinine: 1.3 mg/dL Height: 70.9 Inches Weight (kg): 56.5 Diagnosis: SEPSIS Assessment: IBW (kg): 75.07 Dosing wt(kg): 56.5 Estimated Creatinine clearance (ml/min): 37.4 CRCL method: Cockcroft and Gault using ibw(default). Drug selected: Vancomycin Loading dose (mg): 500 MG Vd (liters): 36.7 (factor used: 0.65 L/kg) Hernán (hr-1): 0.035 Half life (hrs):
[2021-09-05 08:51] LABS: Eosinophils % 1 % (0-3); Lymphocytes % 72 % (10-50); Macrocytosis 1+; Monocytes % 3 % (2-9); Neutrophils % 22 % (42-76); Platelet Estimate Moderate Decrease; Total Cells Counted 100
--- NOTE | 2021-09-05 09:18 | HMH.HP ---
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 He has lived many years by himself in [facility] under the care of his brothers who are living elsewhere but look over his financial and legal affairs, he had to be hospitalized at the [facility] because of needs for PT and worsening self-care as he ages. Has been doing well there but over the past 24 hours became febrile, coughing, congestion, hypotensive and brought to the hospital where he was found to meet sepsis criteria, admitted to [facility] for IV antibiotics, IV fluids, minimal dose of pressors on admission and for ongoing sepsis evaluation and treatment. This morning patient is alert, knows who I am, reports that he is feeling better, reports that he has a cough, denies pain, reports mild nausea but no other symptoms. [facility] History I have reviewed the patient's past medical history: Yes Medical History: Reports:: Cancer (chronic lymphocytic leukemia of [facility]), Seizures Denies:: Diabetes Mellitus Type 1, Diabetes Mellitus Type 2, Internal Pacemaker, Lung Disease *Have you ever received a pneumonia vaccine?: Yes (06/10/21) *Have you received a flu vaccine this season?: No (per meical records from prison, pt did not consent this year) Other Medical History: Reports: Hypothyroidism. 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 No: Pacemaker Amputation: No Fractures: Yes - *Social History Smoking Status: Never smoker Alcohol Intake: never Alcohol Intake Frequency:: other Substance Use Type: denies use *Occupational Status:: retired, disabled Housing: apartment Household Members: none *Travel in the last 8 weeks: None Family Hx:: Unable to obtain Review of Systems - Review of Systems Review of systems:: pertinent systems reviewed and negative unless documented below - *Neurologic Reports weakness Meds Home Medications Medication Instructions Recorded Confirmed Type Acetaminophen [Acetaminophen Extra 500 mg PO Q4HP PRN 09/05/21 09/05/21 History Strength] Phenytoin Sodium Extended 100 mg PO Q48H 09/05/21 09/05/21 History [Dilantin] Phenytoin Sodium Extended 300 mg PO Q48H 09/05/21 09/05/21 History [Phenytek] polyethylene glycoL 3350 [Miralax 17 gm PO DAILYP PRN 09/05/21 09/05/21 History 17gm Packet] propylthiouraciL [Propylthiouracil 75 mg PO TID 09/05/21 09/05/21 History 50mg Tablet] Allergies Allergy/AdvReac Type Severity Reaction Status Date / Time No Known Allergies Allergy Verified 05/30/21 20:54 Exam Vital signs and Labs for Last 24 Hours: Temp Pulse Resp BP Pulse Ox 99.6 F 109 H 31 H 84/64 L 99 09/05/21 04:00 09/05/21 07:00 09/05/21 07:00 09/05/21 07:00 09/05/21 07:00 Laboratory Results - last 24 hr 09/04/21 15:30: Gastric Occult Blood Negative 09/04/21 15:56: SARS-CoV-2 (PCR) Not detected, Influenza A Untype (PCR) Not detected, Influenza Type B (PCR) Not detected 09/04/21 16:00: Urine Color Yellow, Urine Appearance Clear, Urine pH 6.0, Ur Specific [place] 1.015, Urine Protein Trace, Urine Glucose (UA) Negative, Urine Ketones Negative, Urine Blood 2+, Urine Nitrate Negative, Urine Bilirubin Negative, Urine Urobilinogen 0.2, Ur Leukocyte Esterase Negative, Urine RBC 3-5, Urine WBC 3-5, Ur Squamous Epith Cells 3-5, Ur Renal Epithelial Cell 10-20, Amorphous Sediment 2+, Urine Bacteria Trace 09/04/21 16:02: WBC 15.9 H, RBC 4.85, Hgb 15.8, Hct 50.3, MCV 103.6 H, MCH 32.5 H, MCHC 31.3 L, RDW 13.4, Plt Count 109 L, MPV 9.9, Neut % (Auto) 27.8 L, Lymph % (Auto) 69.6 H,
--- NOTE | 2021-09-05 09:50 | PC.NURSE ---
RESP CARE NOTE: Pt weaned to vapotherm of 15L/40% FIO2 per Dr Sofia request to wean per protocol. SPO2 at 95% on 15L/40 FIO2 will continue to monitor and wean accordingly if possible.
--- NOTE | 2021-09-05 10:10 | PC.NURSE ---
RESP CARE NOTE: Pt weaned to 3 lpm nc, SPO2 maintained at 95%. Will continue to monitor patient.
[2021-09-05 10:52] LABS: Reflex Lactic Add Lactic Reflex
[2021-09-05 11:36] LABS: Lactic Acid Follow Up (RFLX 1) 2.4 mmol/L (0.7-2.1)
[2021-09-05 13:22] LABS: Reflex Lactic (2 hrs) Add Lactic Reflex
--- NOTE | 2021-09-05 13:28 | SW/DCPLANNER ---
Addendum entered by Bethany Cates 09/07/21 07:36: PATIENT REMAINS HERE AT [facility] AND HAS BEEN NOT BEEN DOING WELL.. I HAVE SPOKEN WITH THE SKILLED NURSING WHERE PATIENT RESIDES TO KEEP THEM INFORMED.. PATIENT IS NOT MEDICALLY READY FOR A DISPOSITION AT THIS TIME...CM WILL CONTINUE TO FOLLOW.. Original Note: CALLED [facility] TODAY AND CHECKED THE STATUS ON THIS PATIENT... MR OLVERA IS PRIVATE PAY THERE AND HIS BED IS BEING HELD FOR HIS RETURN.. NOT SURE WHEN HE WILL BE READY BUT PATIENT DOES NOT HAVE AN INSURANCE TO UTILIZE A SKILLED STAY.
[2021-09-05 14:08] LABS: Lactic Acid Follow up (RFLX 2) 1.9 mmol/L (0.7-2.1)
--- NOTE | 2021-09-05 14:47 | DIET.NUTRFU ---
RD spoke to nursing about oral diet, He was NPO for CT scans and now ready for oral diet. Nursing is assisting with meals and feels softer foods maybe beneficial d/t being lethargic. Will notify laurel to start cardiac, MSOFT with ground meat. Will also start ensure with meals d/t PMH of PCM
[2021-09-05 14:58] LABS: Adenovirus F 40/41, stool Not Detected (NotDetected); Astrovirus Not Detected (NotDetected); Campylobacter Not Detected (NotDetected); Clostridium Difficile A/B, PCR Not Detected (NotDetected); Cryptosporidium Not Detected (NotDetected); Cyclospora Cayetanesis Not Detected (NotDetected); Entamoeba histolytica Not Detected (NotDetected); Enteroaggregative E coli Not Detected (NotDetected); Enteropathogenic E coli Not Detected (NotDetected); Enterotoxigenic E coli Not Detected (NotDetected); Giardia lamblia Not Detected (NotDetected); Norovirus Not Detected (NotDetected); Plesimonas Shigalloides, PCR Not Detected (NotDetected); Rotavirus A Not Detected (NotDetected); Salmonella, PCR Not Detected (NotDetected); Sapovirus Not Detected (NotDetected); Shiga-like toxin E coli Not Detected (NotDetected); Shigella Enterovasive E coli Not Detected (NotDetected); Vibrio Cholerae Not Detected (NotDetected); Vibrio, PCR Not Detected (NotDetected); Yersinia Entercolitica, PCR Not Detected (NotDetected)
--- NOTE | 2021-09-05 17:52 | PC.NURSE ---
[address] Sofia that pt one[place] bases are beginning to have crackles. Per Dr Sofia change ivf rate to 25ml from 100ml
--- NOTE | 2021-09-05 17:55 | PC.NURSE ---
Beginning of shift Levophed drip at 12g 0744 decreased to 10 (123/67) 0900 decreased to 8 (113/53) 0930 increased to 9 (89/45) 1201 increased to 10 (80/41) 1215 increased to 11 (84/45) 1350 decreased to 10 (103/53) 1630 decreased to 8 (127/57) 1730 decreased to 6 (116/60)
--- NOTE | 2021-09-05 22:39 | ECG_ITS ---
APPROVED REPORT Exam: Resting ECG HR:144 bpm ECG Measurements Heart Rate 144 AXES WY 140 P 75 QRSd 72 QRS 196 QT 264 T 114 QTc 408 Conclusion Sinus tachycardia Right superior axis deviation Nonspecific ST and T wave abnormality Abnormal ECG Electronically signed by : Pratik Sofia MD 09/06/2021 19:55:25
[2021-09-06] VITALS (14 sets, daily range): BP systolic 95–120; BP diastolic 37–67; PULSE 110–150; RESP 18–26; TEMP 36.4–38.9; O2SAT 93–99; BMI 17.2
--- NOTE | 2021-09-06 04:37 | PC.NURSE ---
pt has not rested well this shift, has remained on 3L NC with O2 sats 93-99%, crackles noted on auscultation at beginning of shift Levo gtt 2014 decreased to 4 2100 drecreased to 2 2130 decreased to [address] Bae notified of pt being tachy, gave orders to turn off levo, stop fluids and an EKG was obtained, EKG showed sinus tach, orders given to restart levo if map is persistently below 60, MAP has remained above 60 since levo gtt turned off, sysyolic BP has been 95-134, pt has remained tachy, HR 125-148, on palpation pulse is around 20 less than the monitor shows, stickers replaced and no difference noted pt temp at 0000 102.1, PRN medications given, at 0200 temperature was 101.5, at 0400 temperature was 101.0, PRN medications given again
--- NOTE | 2021-09-06 05:42 | PC.NURSE ---
550 mL of urine out via catheter this shift
[2021-09-06 06:13] LABS: MANUAL DIFFERENTIAL MANUAL DIFFERENTIAL (MANUAL DIFF)
--- NOTE | 2021-09-06 06:33 | PC.NURSE ---
Rashard, RN went to bedside and palpated pulse, states that HR on palpation is 125
[2021-09-06 06:38] LABS: Phenytoin (Dilantin) < 3.0 ug/ml (10-20)
[2021-09-06 07:21] LABS: Basophils # 0.1 K/mm3 (0-0.2); Basophils % 0.4 % (0.1-2.0); Eosinophils # 0.1 K/mm3 (0.0-0.4); Eosinophils % 0.5 % (0.1-12.0); Hematocrit 38.6 % (42.0-52.0); Hemoglobin 12.2 g/dL (14.1-18.0); Lymphocytes % 63.4 % (10-50); Mean Corpuscular HGB Conc 31.6 g/dL (31.8-35.4); Mean Corpuscular Hemoglobin 32.2 pg (27.0-31.2); Mean Corpuscular Volume 102.1 fl (80-94); Mean Platelet Volume 10.7 fl (7.4-10.4); Monocytes # 0.2 K/mm3 (0.1-1.0); Monocytes % 1.4 % (1.7-9.3); Neutrophils # 4.4 K/mm3 (1.8-7.8); Neutrophils % 34.4 % (37.0-80.0); Platelet Count 81 K/mm3 (142-424); Red Blood Count 3.78 M/mm3 (4.60-6.20); Red Cell Distribution Width 13.8 % (11.5-17.5); White Blood Count 12.7 K/mm3 (4.8-10.8)
[2021-09-06 08:24] LABS: Anion Gap 14.4 mEq/L (5-15); Blood Urea Nitrogen 62 mg/dl (9-20); Calcium 8.4 mg/dl (8.4-10.2); Carbon Dioxide 20 mmol/L (22.0-30.0); Chloride 106 mmol/L (98-107); Creatinine Clearance Estimated 24 mL/min (50-200); Estimated Glomerular Filt Rate 32 ml/min (>60); GFR (African American) 39 ML/MIN (>60); Glucose 127 mg/dl (74-100); Potassium 3.4 mmoL/L (3.5-5.1); Sodium 137 mmol/L (136-145)
--- NOTE | 2021-09-06 08:29 | HMH.ACPN2 ---
Internal Medicine - PN: Subj *Date: 09/06/21 *Time: 08:29 Interval history: Intermittently febrile overnight. Has had no vomiting. Remains tachycardic. Awake on exam but not responding to verbal questions. Groans to pain. EKG overnight with sinus tachycardia. Able to wean off Levophed overnight. Exam Vital signs and Labs for Last 24 Hours: Temp Pulse Resp BP Pulse Ox 100.8 F H 120 H 26 H 110/54 L 94 L 09/06/21 07:32 09/06/21 06:00 09/06/21 06:00 09/06/21 06:00 09/06/21 06:00 Laboratory Results - last 24 hr 09/05/21 06:46: Total Counted 100, Neutrophils % (Manual) 22 L, Band Neutrophils % 2.0, Lymphocytes % (Manual) 72 H, Monocytes % (Manual) 3, Eosinophils % (Manual) 1, Platelet Estimate Moderate decrease, Macrocytosis 1+ 09/05/21 11:10: Lactate 2.4 H 09/05/21 13:45: Lactate 1.9 09/05/21 14:52: Stl Aeromonas (PCR) Not detected, Stl C. cayetanensis PCR Not detected, Stool Rotavirus (PCR) Not detected, Stl Adenov F 40/41 PCR Not detected, Stool Astrovirus (PCR) Not detected, Stool Campylobacter PCR Not detected, Stl C.difficile Tox PCR Not detected, Stool Cryptosporidium PCR Not detected, Stl E.coli Shiga Tox PCR Not detected, Stool E coli O157 PCR Not detected, Stl Enterotoxigenic E PCR Not detected, Stool EPEC (PCR) Not detected, Stool EAEC (PCR) Not detected, Stl E. histolytica PCR Not detected, Stool Giardia Lamblia PCR Not detected, Stool Salmonella PCR Not detected, Stool Sapovirus (PCR) Not detected, Stl P. shigelloides PCR Not detected, Stl Shigella/EIEC PCR Not detected, St Y.enterocolitica PCR Not detected, Stool Vibrio (PCR) Not detected, Stl Vibrio cholerae PCR Not detected, Stl Norovirus GI/GII PCR Not detected 09/06/21 05:34: Phenytoin < 3.0 L 09/06/21 05:34: Sodium 137, Potassium 3.4 L, Chloride 106, Carbon Dioxide 20 L, Anion Gap 14.4, BUN 62 H D, Creatinine 2.00 H D, Estimated Creat Clear 24, Estimated GFR 32 L, Est GFR ( Amer) 39 L D, Glucose 127 H D, Calcium 8.4 09/06/21 06:49: WBC 12.7 H, RBC 3.78 L, Hgb 12.2 L, Hct 38.6 L, MCV 102.1 H, MCH 32.2 H, MCHC 31.6 L, RDW 13.8, Plt Count 81 L, MPV 10.7 H, Neut % (Auto) 34.4 L, Lymph % (Auto) 63.4 H, [place] % (Auto) 1.4 L, Eos % (Auto) 0.5, Baso % (Auto) 0.4, Neut # (Auto) 4.4, Lymph # (Auto) 8.0 H, [place] # (Auto) 0.2, Eos # (Auto) 0.1, Baso # (Auto) 0.1 I & O for Last 24 hours: Intake & Output 09/03/21 09/04/21 09/05/21 09/06/21 23:59 23:59 23:59 23:59 Intake Total 2426 / 2426 100 / 100 Output Total 250 / 700 550 / 550 Balance 2176 / 1726 -450 / -450 Weight 56.5 kg 56.5 g 56 kg Narrative: - Constitutional Moderate distress, frail, cachectic, chronically ill appearing - *Routine HEENT Exam Head: Present: normocephalic Eye: Present: EOMI, PERRL ENT: Present: mucous membranes dry - *Routine Neck Exam Present: supple. Absent: lymphadenopathy - *Routine Respiratory Exam Present: rhonchi - *Routine Cardiovascular Exam Present: Tachycardic, no murmur - *Routine Abdominal Exam Present: soft, normoactive bowel sounds. Absent: tenderness : Adams catheter draining cloudy urine Neuro: Alert, opens eyes spontaneously, and audible sounds to verbal and physical stimuli. Assessment and Plan (1) Sepsis associated hypotension Status: Acute Category: Medical Code(s): A41.9 - Sepsis, unspecified organism; I95.9 - Hypotension, unspecified (2) Severe protein-calorie malnutrition Status: Acute Category: Medical Code(s): E43 - Unspecified severe protein-calorie malnutrition (3) Septic shock Status: Acute Category: Medical Code(s): A41.9 - Sepsis, unspecified organism; R65.21 - Severe sepsis with septic shock (4) CLL (chronic lymphocytic leukemia) Status: Chronic Category: Medical Code(s): C91.10 - Chronic lymphocytic leukemia of B-cell type not having achieved remission (5) UTI (urinary tract infection) Status: Acute Qualifiers: Urinary tract infection type: site unspecified Hematuria presence: with
[2021-09-06 08:36] LABS: Lymphocytes % 57 % (10-50); Monocytes % 3 % (2-9); Neutrophils % 40 % (42-76); Platelet Estimate Moderate Decrease; Total Cells Counted 100
[2021-09-06 08:37] LABS: Macrocytosis 1+
[2021-09-06 08:54] LABS: Adenovirus,PCR Not Detected (NotDetected); Bordetella Pertussis Not Detected (NotDetected); Chlamydophila Pneumoniae, PCR Not Detected (NotDetected); Coronavirus 19, PCR Not Detected (NotDetected); Coronavirus 229E Not Detected (NotDetected); Coronavirus NL63 Not Detected (NotDetected); Coronavirus OC43 Not Detected (NotDetected); Coronovirus HKU1,PCR Not Detected (NotDetected); Human Metapneumovirus Not Detected (NotDetected); Influenza A, PCR Not Detected (NotDetected); Influenza AH1, 2009 Not Detected (NotDetected); Influenza AH1, PCR Not Detected (NotDetected); Influenza AH3,PCR Not Detected (NotDetected); Influenza B, PCR Not Detected (NotDetected); Mycoplasma Pneumoniae, PCR Not Detected (NotDetected); Parainfluenza 1, PCR Not Detected (NotDetected); Parainfluenza 2, PCR Not Detected (NotDetected); Parainfluenza 3, PCR Not Detected (NotDetected); Parainfluenza 4, PCR Not Detected (NotDetected); Respiratory Syncytial Virus Not Detected (NotDetected); Rhinovirus/Enterovirus Not Detected (NotDetected)
--- NOTE | 2021-09-06 10:37 | PC.NURSE ---
verified with dr amaya that patient could come out of stepdown
--- NOTE | 2021-09-06 11:03 | PC.NURSE ---
Report given to Antionette Phipps RN who assumes care of patient at this time
[2021-09-06 19:03] LABS: Anion Gap 12.2 mEq/L (5-15); Calcium 8.5 mg/dl (8.4-10.2); Carbon Dioxide 21 mmol/L (22.0-30.0); Chloride 108 mmol/L (98-107); Creatinine Clearance Estimated 17 mL/min (50-200); Estimated Glomerular Filt Rate 21 ml/min (>60); GFR (African American) 26 ML/MIN (>60); Glucose 121 mg/dl (74-100); Potassium 3.2 mmoL/L (3.5-5.1); Sodium 138 mmol/L (136-145)
[2021-09-06 19:13] LABS: Blood Urea Nitrogen 82 mg/dl (9-20)
--- NOTE | 2021-09-06 19:45 | PC.NURSE ---
Recieved critical lab BUN of 82 & creatinine of 2.9; spoke with Dr. Mckenzie, received new order of LR at 500mL for total of 1000mL then start NS at 125mL/hr for maintenance.
--- NOTE | 2021-09-06 22:07 | PC.NURSE ---
order for 1000 mL bolus of LR and 125 mL/hr of NS faxed by AVTAR Hudson, not signed, signed by AVTAR Mcnally and refaxed
[2021-09-07] VITALS: BP 115/65; PULSE 100; PULSE 118; RESP 20; TEMP 37.5; O2SAT 94
[2021-09-07 04:00] VITALS: BP 130/53; PULSE 120; PULSE 125; RESP 21; TEMP 37.4; O2SAT 93
[2021-09-07 04:53] VITALS: BMI 17.9
[2021-09-07 06:26] LABS: MANUAL DIFFERENTIAL MANUAL DIFFERENTIAL (MANUAL DIFF)
--- NOTE | 2021-09-07 06:31 | PC.NURSE ---
pt has rested most of shift, not as responsive to following commands as previous shift foreman, O2 has remained 93-94% on room air, HR has remained elevated but improved from previous shift foreman, HR 117-125, 500 mL of urine out via catheter this shift
[2021-09-07 06:52] LABS: Alanine Aminotransferase 20 U/L (12-78); Albumin Level 2.6 g/dl (3.5-5.0); Albumin/Globulin Ratio 1.1 (1.1-1.8); Alkaline Phosphatase 66 U/L (38-126); Anion Gap 15.3 mEq/L (5-15); Aspartate Amino Transferase 34 U/L (17-59); Bilirubin,Total 0.6 mg/dl (0.2-1.3); Calcium 8.8 mg/dl (8.4-10.2); Carbon Dioxide 19 mmol/L (22.0-30.0); Chloride 109 mmol/L (98-107); Creatinine Clearance Estimated 16 mL/min (50-200); Estimated Glomerular Filt Rate 20 ml/min (>60); GFR (African American) 24 ML/MIN (>60); Globulin 2.4 g/dL (1.3-3.2); Glucose 112 mg/dl (74-100); Potassium 3.3 mmoL/L (3.5-5.1); Sodium 140 mmol/L (136-145)
[2021-09-07 07:29] LABS: Blood Urea Nitrogen 92 mg/dl (9-20)
--- NOTE | 2021-09-07 07:29 | PC.NURSE ---
notified md erendira of critical bun of 92
[2021-09-07 08:00] VITALS: BP 134/55; PULSE 118; PULSE 124; RESP 28; TEMP 37; O2SAT 90
[2021-09-07 08:26] LABS: Hematocrit 32.9 % (42.0-52.0); Mean Corpuscular HGB Conc 32.5 g/dL (31.8-35.4); Mean Corpuscular Volume 101.7 fl (80-94); Mean Platelet Volume 11.3 fl (7.4-10.4); Platelet Count 91 K/mm3 (142-424); Red Blood Count 3.23 M/mm3 (4.60-6.20); Red Cell Distribution Width 13.7 % (11.5-17.5); White Blood Count 13.5 K/mm3 (4.8-10.8)
[2021-09-07 08:27] LABS: Basophils # 0.1 K/mm3 (0-0.2); Basophils % 0.4 % (0.1-2.0); Eosinophils # 0.3 K/mm3 (0.0-0.4); Lymphocytes # 8.6 K/mm3 (0.7-4.5); Lymphocytes % 63.9 % (10-50); Monocytes # 0.2 K/mm3 (0.1-1.0); Monocytes % 1.3 % (1.7-9.3); Neutrophils # 4.4 K/mm3 (1.8-7.8); Neutrophils % 32.5 % (37.0-80.0)
--- NOTE | 2021-09-07 09:22 | HMH.ACPN2 ---
Internal Medicine - PN: Subj *Date: 09/07/21 *Time: 09:22 Interval history: Overnight patient has improved his blood pressure, still remains somewhat febrile, blood pressure is good but his heart remains tachycardic. Urine output is good but kidney function is declined vis-?-vis BUN and creatinine levels Exam Vital signs and Labs for Last 24 Hours: Temp Pulse Resp BP Pulse Ox 99.3 F 125 H 21 130/53 L 93 L 09/07/21 04:00 09/07/21 04:00 09/07/21 04:00 09/07/21 04:00 09/07/21 04:00 Laboratory Results - last 24 hr 09/06/21 08:44: Chlamy pneumoniae PCR Not detected, Adenovirus (PCR) Not detected, B. pertussis DNA (PCR) Not detected, Coronavirus OC43 (PCR) Not detected, Coronavirus HKU1 (PCR) Not detected, Coronavirus 229E (PCR) Not detected, SARS-CoV-2 (PCR) Not detected, Coronavirus NL63 (PCR) Not detected, Human Metapneumovir PCR Not detected, Influenza A (H1) PCR Not detected, Influ A (H1N1/09) PCR Not detected, Influenza A (H3) PCR Not detected, Influenza Type A (PCR) Not detected, Influenza Type B (PCR) Not detected, M. pneumoniae (PCR) Not detected, Parainfluenza 1 (PCR) Not detected, Parainfluenza 2 (PCR) Not detected, Parainfluenza 3 (PCR) Not detected, Parainfluenza 4 (PCR) Not detected, RSV (PCR) Not detected, Entero/Rhino (PCR) Not detected 09/06/21 18:22: Sodium 138, Potassium 3.2 L, Chloride 108 H, Carbon Dioxide 21 L, Anion Gap 12.2, BUN 82 H D, Creatinine 2.90 H D, Estimated Creat Clear 17, Estimated GFR 21 L, Est GFR ( Amer) 26 L D, Glucose 121 H, Calcium 8.5 09/07/21 05:30: Sodium 140, Potassium 3.3 L, Chloride 109 H, Carbon Dioxide 19 L, Anion Gap 15.3 H, BUN 92 H, Creatinine 3.10 H, Estimated Creat Clear 16, Estimated GFR 20 L, Est GFR ( Amer) 24 L, Glucose 112 H, Calcium 8.8, Total Bilirubin 0.6, AST 34 D, ALT 20 D, Alkaline Phosphatase 66, Total Protein 5.0 L D, Albumin 2.6 L, Globulin 2.4, Albumin/Globulin Ratio 1.1 09/07/21 05:30: WBC 13.5 H, RBC 3.23 L, Hct 32.9 L, MCV 101.7 H, MCH 33.0 H, MCHC 32.5, RDW 13.7, Plt Count 91 L, MPV 11.3 H, Neut % (Auto) 32.5 L, Lymph % (Auto) 63.9 H, [place] % (Auto) 1.3 L, Eos % (Auto) 2.0, Baso % (Auto) 0.4, Neut # (Auto) 4.4, Lymph # (Auto) 8.6 H, [place] # (Auto) 0.2, Eos # (Auto) 0.3, Baso # (Auto) 0.1 I & O for Last 24 hours: Intake & Output 09/04/21 09/05/21 09/06/21 09/07/21 11:59 11:59 11:59 11:59 Intake Total 269 / 269 2497 / 2497 2467 / 2467 Output Total 250 / 250 550 / 550 500 / 500 Balance 1946 / 1946 1966 / 1966 Weight 124 lb 8.979 oz 123 lb 7.342 oz 128 lb 4.944 oz Microbiology Reports for the Last 24 Hours: Microbiology 09/04/21 16:02 Blood Blood Culture - Preliminary NO GROWTH AFTER 48 HOURS 09/04/21 16:02 Blood Blood Culture - Preliminary NO GROWTH AFTER 48 HOURS Narrative: Appears systemically ill, verbal but does not make sense when he talks. Minimal oxygen requirement. Lungs have rhonchi but good air movement, abdomen is soft with minimal guarding but no masses. Heart rate tachycardic. Assessment and Plan (1) Sepsis associated hypotension Status: Acute Category: Medical Code(s): A41.9 - Sepsis, unspecified organism; I95.9 - Hypotension, unspecified (2) Severe protein-calorie malnutrition Status: Acute Category: Medical Code(s): E43 - Unspecified severe protein-calorie malnutrition (3) Septic shock Status: Acute Category: Medical Code(s): A41.9 - Sepsis, unspecified organism; R65.21 - Severe sepsis with septic shock (4) CLL (chronic lymphocytic leukemia) Status: Chronic Category: Medical Code(s): C91.10 - Chronic lymphocytic leukemia of B-cell type not having achieved remission (5) UTI (urinary tract infection) Status: Acute Qualifiers: Urinary tract infection type: site unspecified Hematuria presence: without hematuria Qualified Code(s): N39.0 - Urinary tract infection, site not specified Category: Me
[2021-09-07 09:28] LABS: Eosinophils % 2 % (0-3); Lymphocytes % 48 % (10-50); Monocytes % 1 % (2-9); Neutrophils % 47 % (42-76); Total Cells Counted 100
[2021-09-07 09:31] LABS: Platelet Estimate Moderate Decrease
[2021-09-07 09:33] LABS: Macrocytosis 1+
[2021-09-07 10:28] LABS: Hemoglobin 10.5 g/dL (14.1-18.0)
[2021-09-07 12:00] VITALS: BP 149/64; PULSE 119; RESP 37; TEMP 36.8; O2SAT 92
--- NOTE | 2021-09-07 14:02 | HMH.SLDYSPHA ---
Speech & Language Evaluation Speech/Language Dysphagia Evaluation Start: 09/07/21 13:35 Freq: ONCE Status: Active Protocol: Document 09/07/21 13:35 ABAD (Rec: 09/07/21 14:01 ABAD [id number]) Dysphagia Assess/Goals/Plan Assessment Date of Evaluation: 09/07/21 Evaluation Type Initial Certification Assessment/Problems dysphagia Does Patient Qualify for Service No Qualify/Failure Comment Based on trials given, pt is not appropriate for skilled speech therapy services at this time. MAIL TECHNICIAN will continue to check status with nursing and will re-evaluate as needed . Recommendations PHYSICIAN CERTIFICATION: The specified therapy services are required, authorized, and reviewed every 30 days. Diet Recommendations NPO, meds via alternate route SL Swallow Guidelines High aspiration risk Plan Pt/Guardian verbally ack understanding Yes of dx/prognosis/goals Pt/Guardian verbally ack understanding Yes of/consent to tx prog G -code Required No Education Instructions provided Diet recommendations discussed with nursing, pt, and care management. Pt/Caregiver able to recall information Reinforcement needed Reinforcement needed Yes Speech & Language HPI History Present Illness Description of Patient Problem Mr. Moses is a 80 yo male w / PMH for CLL (not in remission) and hypothyroidism came to the ED for generalized weakness and dark emesis. He was admitted to the hospital with septic shock. Limited hx given patient's cognition. Rehab Services Assessed Speech therapy Is this evaluation r/t stroke? No Language Primary Language Portuguese General Information General Current Food Consistancy Ground Meats,Thin Liquids Oxygen Status Room Air Facial Symmetry Patient Baseline Ability to Follow Directions Poor Communication Ability Severe Impairment Dysphagia:Food Presentation Evaluation Food Type Pureed,Liquid Normal/Thin Liquid Response Falls out of mouth,Unable to suck straw,Absent laryngeal elevate Dysphagia Evaluation Pureed Food Unable to form bolus,Unable to Behavior Response move bolus,Residual on tongue ,Absent laryngeal elevate Dysphagia Evaluation Summary Clinical swallow evaluation
[2021-09-07 16:00] VITALS: BP 156/61; PULSE 120; PULSE 122; RESP 40; TEMP 36.8; O2SAT 93
--- NOTE | 2021-09-07 18:00 | PC.NURSE ---
0.25 of Ativan IV push given and 5 mg metoprolol IV administered. Verbal order from provider. Awaiting STAT overnight pharmacy to enter physical order
[2021-09-07 20:00] VITALS: BP 89/48; PULSE 110; PULSE 118; PULSE 121; RESP 42; TEMP 38.1; O2SAT 94
[2021-09-08] VITALS (8 sets, daily range): BP systolic 93–142; BP diastolic 38–79; PULSE 110–134; RESP 23–44; TEMP 37–38.4; O2SAT 90–94; BMI 17.4
--- NOTE | 2021-09-08 01:51 | PC.NURSE ---
pt noted to be remaining tachycardic heart rate 129-130 sustaining, iv metoprolol given as ordered, sats were noted to be 85 on o2 at 5L and was increased to 13L and noted sats improved to 95%. heart rate noted to improve after metoprolol to 86,
[2021-09-08 06:35] LABS: Basophils # 0.1 K/mm3 (0-0.2); Basophils % 0.5 % (0.1-2.0); Eosinophils # 0.1 K/mm3 (0.0-0.4); Eosinophils % 0.4 % (0.1-12.0); Hematocrit 34.3 % (42.0-52.0); Hemoglobin 10.6 g/dL (14.1-18.0); Lymphocytes # 10.8 K/mm3 (0.7-4.5); Mean Corpuscular Hemoglobin 32.2 pg (27.0-31.2); Mean Corpuscular Volume 103.7 fl (80-94); Monocytes # 0.3 K/mm3 (0.1-1.0); Monocytes % 1.6 % (1.7-9.3); Neutrophils # 5.7 K/mm3 (1.8-7.8); Neutrophils % 33.5 % (37.0-80.0); Platelet Count 97 K/mm3 (142-424); Red Blood Count 3.31 M/mm3 (4.60-6.20); Red Cell Distribution Width 13.7 % (11.5-17.5); White Blood Count 16.9 K/mm3 (4.8-10.8)
[2021-09-08 06:58] LABS: Anion Gap 16.6 mEq/L (5-15); Calcium 9.1 mg/dl (8.4-10.2); Carbon Dioxide 17 mmol/L (22.0-30.0); Chloride 115 mmol/L (98-107); Creatinine Clearance Estimated 11 mL/min (50-200); Estimated Glomerular Filt Rate 12 ml/min (>60); GFR (African American) 15 ML/MIN (>60); Glucose 121 mg/dl (74-100); Potassium 3.6 mmoL/L (3.5-5.1); Sodium 145 mmol/L (136-145)
[2021-09-08 07:06] LABS: MANUAL DIFFERENTIAL MANUAL DIFFERENTIAL (MANUAL DIFF)
[2021-09-08 07:27] LABS: Blood Urea Nitrogen 100 mg/dl (9-20)
--- NOTE | 2021-09-08 08:11 | PC.NURSE ---
repeated and verified with lab patient name bday and critical results of bun and creatnine and this was relayed to
--- NOTE | 2021-09-08 08:46 | P.PN_ITS ---
Internal Medicine - PN: Subj *Date: 09/08/21 *Time: 08:46 Interval history: Continues to decline overnight. Remains somnolent. Vital sign instability has been noted. Worsening urine output. Exam Vital signs and Labs for Last 24 Hours: Temp Pulse Resp BP Pulse Ox 100.6 F H 124 H 44 H 142/62 H 91 L 09/08/21 04:00 09/08/21 08:00 09/08/21 04:00 09/08/21 04:00 09/08/21 06:49 Laboratory Results - last 24 hr 09/07/21 05:30: Hgb 10.5 L D, Total Counted 100, Neutrophils % (Manual) 47, Band Neutrophils % 2.0, Lymphocytes % (Manual) 48, Monocytes % (Manual) 1 L, Eosinophils % (Manual) 2, Differential Comment , Platelet Estimate Moderate decrease, Macrocytosis 1+ 09/08/21 05:27: WBC 16.9 H D, RBC 3.31 L, Hgb 10.6 L, Hct 34.3 L, MCV 103.7 H, MCH 32.2 H, MCHC 31.0 L, RDW 13.7, Plt Count 97 L, MPV 11.0 H, Neut % (Auto) 33.5 L, Lymph % (Auto) 64.0 H, [place] % (Auto) 1.6 L, Eos % (Auto) 0.4, Baso % (Auto) 0.5, Neut # (Auto) 5.7, Lymph # (Auto) 10.8 H, [place] # (Auto) 0.3, Eos # (Auto) 0.1, Baso # (Auto) 0.1 09/08/21 05:27: Sodium 145, Potassium 3.6, Chloride 115 H, Carbon Dioxide 17 L, Anion Gap 16.6 H, BUN 100 H, Creatinine 4.60 H D, Estimated Creat Clear 11, Estimated GFR 12 L*, Est GFR ( Amer) 15 L* D, Glucose 121 H, Calcium 9.1 I & O for Last 24 hours: Intake & Output 09/05/21 09/06/21 09/07/21 09/08/21 11:59 11:59 11:59 11:59 Intake Total 269 / 269 2497 / 2497 2467 / 2467 4570 / 4570 Output Total 250 / 250 550 / 550 500 / 500 800 / 800 Balance 1946 / 1946 1966 / 1966 3770 / 3770 Weight 124 lb 8.979 oz 123 lb 7.342 oz 128 lb 4.944 oz 124 lb 5.451 oz Narrative: Patient is obtunded, tachypneic, tachycardic. Very minimally responsive to tactile stimuli. Rhonchi in both lung sharma. Poor air movement. Adams catheter draining cloudy urine. Abdomen soft. Extremities are cool, feet are mottled. Assessment and Plan (1) Sepsis associated hypotension Status: Acute Category: Medical Code(s): A41.9 - Sepsis, unspecified organism; I95.9 - Hypotension, unspecified (2) Severe protein-calorie malnutrition Status: Acute Category: Medical Code(s): E43 - Unspecified severe protein- calorie malnutrition (3) Septic shock Status: Acute Category: Medical Code(s): A41.9 - Sepsis, unspecified organism; R65.21 - Severe sepsis with septic shock (4) CLL (chronic lymphocytic leukemia) Status: Chronic Category: Medical Code(s): C91.10 - Chronic lymphocytic leukemia of B-cell type not having achieved remission (5) UTI (urinary tract infection) Status: Acute Qualifiers: Urinary tract infection type: site unspecified Hematuria presence: without hematuria Qualified Code(s): N39.0 - Urinary tract infection, site not specified Category: Medical Code(s): N39.0 - Urinary tract infection, site not specified - Assessment and plan all Dx Assessment and Plan for all problems:: Multiorgan failure. Patient is in a terminal condition based on severe sepsis. Etiology unknown, currently on appropriate antibiotics, antifungal therapy. Renal failure impending. Patient's prognosis is terminal. I have had a long discussion with his brother yesterday who is his power of litigation attorney. Once again we will try to reach out to him today to discuss implications of this terminal condition.
[2021-09-08 09:08] LABS: Lymphocytes % 57 % (10-50); Monocytes % 2 % (2-9); Neutrophils % 41 % (42-76); Total Cells Counted 100
--- NOTE | 2021-09-08 09:08 | CARE MANAGER ---
Spoke with Buzz Moses, patient's brother. He states he has not located the patient's living will, but he called the risk control representative who did it to request a copy. We discussed the gravity of the patient's situation and the likelihood of a terminal outcome. Buzz voiced understanding and requested palliative care and patient to be DNR. Brother is going to speak with patient's nurse regarding this. AVTAR Cruz made aware. AVTAR Fontanez
[2021-09-08 09:10] LABS: Platelet Estimate Slight Decrease
[2021-09-08 09:11] LABS: Macrocytosis 1+
--- NOTE | 2021-09-08 09:57 | DIET.NUTRFU ---
Rounded with Dr. Sofia. SYSTEM SOFTWARE PROGRAMMER saw him yesterday, recommended NPO, he is unsafe for oral intake. Renal fxn is declining, BUN 100H Cr 4.6H. Comfort measures in place.
--- NOTE | 2021-09-08 11:10 | PC.NURSE ---
0915 - Spoke w/ Buzz Walker (CYNTHIA), reviewed code status via phone. Decision was made by POLexy to make pt a DNR. Verified w/ Loraine Almanza RN. DNR placed on chart, DNR bracelet placed on pt.
--- NOTE | 2021-09-08 14:32 | PC.NURSE ---
Noted that patient agonally breathing, HR increased to 130-140's, BP MAP 55. Pt resting comfortably, unresponsive. Turned Q2H. Oral care provided, as well as suctioning. SPO2 has declined to high 80's. 133 - Pt's brother, Buzz, updated on pt's condition. 1333 - Dr. Sofia notified of pt's decline. New orders recieved for 40 mg IV Lasix x 1, 2 mg Morphine IVP Q2HP. Order RB+V. Meds admin per OCT. 142 - Pt's brother (Filemon) currently @ bedside. Updated on POC. Courtesy cart made available.
--- NOTE | 2021-09-08 16:47 | PC.NURSE ---
Addendum entered by Nancy Ruby RN 09/08/21 17:36: 1730 - Spoke to [facility], made aware of need of services. Addendum entered by Nancy Ruby RN 09/08/21 17:06: 1659 - BRITTANY contact @ this time. Spoke w/ Jesica Armas, case # [id number]. Permission to release body to home. Original Note: 1640 - Noted that pt had sofía'd down and sat lowered to 60's. Pt checked on, resp minimal, pulse weak. Brother remain @ bedside. 1642 - Pt asystole on monitor. Upon auscultation, no pulse detected. Dr Sofia @ bedside to pronounce.
--- NOTE | 2021-09-08 17:05 | HMH.DEATH ---
Pronouncement Note - Date and Time of Date of : 09/08/21 Time of : 16:42 - Additional Data Confirmation of : no pulse Family: at bedside Attending/PCP notified?: Yes Attending physician: Pratik Sofia MD Was code activated?: No Autopsy requested?: No naturalization examiner notified?: No Organ bank notified?: Yes Advance directives: Yes
--- NOTE | 2021-09-08 17:07 | P.DN_ITS ---
Discharge Sum: Prov - Provider Primary care physician: Pratik Sofia MD Visit Care Team Role Provider Type Na Love MD Emergency Provider ER Physician Pratik Sofia MD Attending Provider Staff Physician Primary Care Provider Pratik Nieto MD Admit Provider Staff Physician Admitting clinician: Pratik Sofia Pronouncing clinician: Pratik Sofia Discharge Sum: Summary - Date and Time Date of admission: 09/04/21 19:34 Date of : 09/08/21 Time of : 16:42 - Hospital Course prior to Hospital Course Information: Patient was admitted from [facility] with fever, tachycardia, signs and symptoms of sepsis. Admitted to [facility], initially required pressors, this improved with IV fluid administration and broad-spectrum IV antibiotics. Unfortunately, end organ dysfunction occurred with significant renal failure with creatinine escalating and urine output dropping. Patient did not improve, antifungal coverage was added, but he remained tachycardic and tachypneic. Mental status also worsened. Consultation with his brothers, who are his power of quantitative analyst marketing/healthcare surrogates was done and they appropriately requested avoidance of dialysis, palliative care measures and no aggressive CPR or mechanical ventilation. In spite of aggressive antibiotic antifungal therapy and fluid administration patient from overwhelming sepsis at the date and time indicated. Currently no organisms have been cultured. - Additional Data Confirmation of as documented by pronouncing clinician: no pulse Family: at bedside Attending/PCP notified?: Yes Attending physician: Pratik Sofia MD Was code activated?: No Autopsy requested?: No legal instruments examiner notified?: No Organ bank notified?: Yes Advance directives: Yes Hospice patient?: No
== END 2021-09-08 18:20 | disposition expired | DRG 871 ==
LOC: ER 17:52 → 2ND 19:20
PROVIDERS: Internal Medicine Adolescent Medicine; Admitting Provider Family Medicine; Emergency Provider Student in an Organized Health Care Education/Training Program; PCP Internal Medicine Adolescent Medicine; Visit Provider Internal Medicine Adolescent Medicine
DX: A41.9 Sepsis, unspecified organism (principal); R65.21 Severe sepsis with septic shock; E43 Unspecified severe protein-calorie malnutrition; C91.10 Chronic lymphocytic leukemia of B-cell type not having achieved remission; Z68.1 Body mass index [BMI] 19.9 or less, adult; N39.0 Urinary tract infection, site not specified; Z20.822 Contact with and (suspected) exposure to COVID-19; R56.9 Unspecified convulsions; F89 Unspecified disorder of psychological development
CPT/HCPCS: 36415; 70450; 71045; 71275; 72125; 72192; 74177; 80048; 80053; 80185; 81001; 82272; 82803; 83605; 84439; 84443; 84484; 85007; 85014; 85018; 85025; 85048; 85049; 87040; 87086; 87506; 87581; 87632; 87798; 92610; 93005; 94761; 96365; 96366; 96367; 99284; C9803; G0328; J2405; J2543; J3370; Q9967; U0003; U0005